=== PATIENT | male | born 1995 | race Two or more races ===

== ENCOUNTER 2021-07-07 23:47 | Emergency (ER) | payer OTHER, SELFPAY ==
--- NOTE | ~2021-07-07 | XR_ITS ---
EXAMINATION: XR CHEST CLINICAL INFORMATION: Chest pain. Shortness of breath. COMPARISON: 11/27/2019 TECHNIQUE: Frontal view of the chest was obtained. FINDINGS: The lungs are well expanded. There is no focal consolidation, edema, or effusion. No pneumothorax. The cardiomediastinal silhouette is within normal limits. No acute osseous abnormality. XR/XR chest 1V IMPRESSION: Clear lungs.
[2021-07-07 23:51] VITALS: BP 139/82; PULSE 79; RESP 16; TEMP 36.7; O2SAT 96; BMI 24.3
--- NOTE | 2021-07-08 00:29 | ED_ITS ---
HPI - General Adult General Chief complaint: General Medical Stated complaint: Chest discomfort Time Seen by Provider: 07/08/21 00:29 Source: patient Mode of arrival: ambulatory Limitations: no limitations History of Present Illness HPI narrative: Patient with history of COVID in 05/19 complaining of pain for last 2 days on the left side of the chest dry cough also has complaining that he had unprotected sex and want to be tested for STD very anxious on arrival no significant shortness of breath Related Data Previous Rx's Medication Instructions Recorded cephalexin 500 mg capsule 500 mg PO QID 10 Days #40 cap 07/08/21 doxycycline hyclate 100 mg tablet 100 mg PO BID #20 tab 07/08/21 Allergies Allergy/AdvReac Type Severity Reaction Status Date / Time acetaminophen [From TYLENOL] Allergy Severe ANAPHYLAXIS Verified 07/07/21 23:50 banana [BANANA] Allergy Intermediate ITCHING Verified 07/07/21 23:50 FRUIT Allergy Mild ITCHING Uncoded 05/15/20 19:38 VEGETABLES,FRESH Allergy Mild ITCHING Uncoded 05/15/20 19:38 Review of Systems Review of Systems: Yes all other systems are reviewed and are negative [facility] Social History Social History Advance Directives: No Physical Exam Vital Signs: Vital Signs: Last Vital Signs Temp 98.1 F 07/07/21 23:51 Pulse 79 07/07/21 23:51 Resp 16 07/07/21 23:51 BP 139/82 07/07/21 23:51 Pulse Ox 96 07/07/21 23:51 Body Mass Index 24.3 Appearance: Alert. Oriented X3. No acute distress. Eyes: No pallor or icterus ENT: Pharynx normal. Oral Mucosa moist Neck: Normal inspection. Neck supple. CVS: Normal heart rate and rhythm. Pulses normal. Respiratory: No respiratory distress. Equal air entry bilateral, no wheezing/rales/rhonchi slight redness around the left nipple area Abdomen: Soft and nontender. Bowel sounds are present, no mass palpable, no CVA tenderness Skin: Skin warm and dry. Normal skin color. Normal skin turgor. Extremities: No lower extremity edema. No calf tenderness Neuro: Oriented X 3. Medical Decision Making ECG Data Attestation: I personally reviewed and interpreted this ECG as follows: Interpretation: Numbness in its rhythm heart rate 78 beats per minute normal intervals normal axis no acute ST T wave changes impression normal EKG Discharge Plan Discharge Clinical Impression: Cellulitis Qualifiers: Site of cellulitis: trunk Site of cellulitis of trunk: chest wall Qualified Code(s): L03.313 - Cellulitis of chest wall Chest pain Qualifiers: Chest pain type: precordial pain Qualified Code(s): R07.2 - Precordial pain Patient Disposition: Home, Self-Care Instructions: Chest Pain (ED), Cellulitis (ED) Additional Instructions: Take antibiotic as advised for cellulitis Follow with PCP your chest pain is unlikely from the heart Report to the ER/PCP worsening of the redness of the left chest wall Prescriptions: New cephalexin 500 mg capsule 500 mg PO QID 10 Days Qty: 40 RF: 0 doxycycline hyclate 100 mg tablet 100 mg PO BID Qty: 20 RF: 0
--- NOTE | 2021-07-08 00:34 | ECG_ITS ---
Test Reason : CP Blood Pressure : / mmHG Vent. Rate : 078 BPM Atrial Rate : 078 BPM P-R Int : 144 ms QRS Dur : 104 ms QT Int : 358 ms P-R-T Axes : 055 000 048 degrees QTc Int : 408 ms Normal sinus rhythm Incomplete right bundle branch block Abnormal ECG When compared with ECG of 27-NOV-2019 16:21, No significant change was found Referred By: David Escobar Electronically Signed By:ALLEN OLIVAS MD
--- NOTE | 2021-07-08 01:09 | ED.GENADULT ---
HPI - General Adult General Chief complaint: General Medical Stated complaint: Chest discomfort Time Seen by Provider: 07/08/21 00:29 Source: patient Mode of arrival: ambulatory Limitations: no limitations Related Data Previous Rx's Medication Instructions Recorded cephalexin 500 mg capsule 500 mg PO QID 10 Days #40 cap 07/08/21 doxycycline hyclate 100 mg tablet 100 mg PO BID #20 tab 07/08/21 Allergies Allergy/AdvReac Type Severity Reaction Status Date / Time acetaminophen [From TYLENOL] Allergy Severe ANAPHYLAXIS Verified 07/07/21 23:50 banana [BANANA] Allergy Intermediate ITCHING Verified 07/07/21 23:50 FRUIT Allergy Mild ITCHING Uncoded 05/15/20 19:38 VEGETABLES,FRESH Allergy Mild ITCHING Uncoded 05/15/20 19:38 PMFSH Social History Social History Advance Directives: No Physical Exam Vital Signs: Vital Signs: Last Vital Signs Temp 98.1 F 07/07/21 23:51 Pulse 79 07/07/21 23:51 Resp 16 07/07/21 23:51 BP 139/82 07/07/21 23:51 Pulse Ox 96 07/07/21 23:51 Body Mass Index 24.3 Discharge Plan Discharge Clinical Impression: Cellulitis Qualifiers: Site of cellulitis: trunk Site of cellulitis of trunk: chest wall Qualified Code(s): L03.313 - Cellulitis of chest wall Chest pain Qualifiers: Chest pain type: precordial pain Qualified Code(s): R07.2 - Precordial pain Patient Disposition: Home, Self-Care Instructions: Chest Pain (ED), Cellulitis (ED) Additional Instructions: Take antibiotic as advised for cellulitis Follow with PCP your chest pain is unlikely from the heart Report to the ER/PCP worsening of the redness of the left chest wall Prescriptions: New cephalexin 500 mg capsule 500 mg PO QID 10 Days Qty: 40 RF: 0 doxycycline hyclate 100 mg tablet 100 mg PO BID Qty: 20 RF: 0
[2021-07-08 01:15] VITALS: BP 117/87; PULSE 75; RESP 16; O2SAT 96
[2021-07-08] MEDS: cephALEXin 500 MG CAPSULE PO (01:16)
[2021-07-08 01:30] LABS: Appearance Urine CLEAR; Color Urine YELLOW; Glucose Urine UA NEG (NEG); Leukocyte Esterase Urine NEG (NEG); Nitrite Urine NEG (NEG); Specific Gravity - Urine >= 1.030 (1.005-1.025); Urine Blood NEG (NEG); Urine Ketones NEG (NEG); Urine Protein NEG (NEG-TRACE)
[2021-07-08 01:31] LABS: UACC Culture Trigger NO
[2021-07-08 03:03] LABS: CT PCR NOT DETECTED (Not Detect.); NG PCR NOT DETECTED (Not Detect.)
== END 2021-07-08 01:23 | disposition home or self-care (01) ==
PROVIDERS: Emergency Provider Internal Medicine; PCP Internal Medicine
DX: L03.313 Cellulitis of chest wall (principal); R07.2 Precordial pain
CPT/HCPCS: 71045; 81003; 87491; 87591; 93005; 99283; 99284

== ENCOUNTER 2022-02-16 18:47 | Emergency (ER) | payer OTHER, SELFPAY ==
--- NOTE | 2022-02-16 | ECG_ITS ---
Test Reason : PALPITATIONS Blood Pressure : / mmHG Vent. Rate : 063 BPM Atrial Rate : 063 BPM P-R Int : 142 ms QRS Dur : 120 ms QT Int : 372 ms P-R-T Axes : 035 000 048 degrees QTc Int : 380 ms Normal sinus rhythm Right bundle branch block Abnormal ECG When compared with ECG of 08-JUL-2021 00:51, Right bundle branch block is now Present Referred By: Generic ED Physician Electronically Signed By:WILL ASENCIO MD
--- NOTE | ~2022-02-16 | CT_ITS ---
EXAMINATION: CT ANGIOGRAM OF THE CHEST WITH AND WITHOUT CONTRAST (CT PULMONARY ANGIOGRAM FOR PE) CLINICAL INFORMATION: Reason for Exam L posterior chest pain, new RBBB, COVID 14 days pr COMPARISON: Chest radiograph 07/08/2021. TECHNIQUE: Prior to contrast administration, noncontrast localization images were obtained. Subsequently, multidetector volumetric imaging was performed from the thoracic inlet to below the diaphragms following the administration of 65 mL Omnipaque 350 intravenous contrast. No contrast reaction reported Sagittal, coronal, and MIP oblique sagittal reformatted images were obtained on the CT workstation, uploaded to PACS, and reviewed. This CT examination was performed using dose optimization techniques as appropriate, variously including the following: *Automated exposure control *Adjustment of mA and/or kV according to patient size (this includes techniques or standardized protocols for targeted exams where dose is matched to indication/reason for exam; i.e. extremities or head) *Use of iterative reconstruction technique Total exam dose-length product 281 mGy-cm FINDINGS: QUALITY OF STUDY/CONTRAST BOLUS: Satisfactory. PULMONARY ARTERIES: No intraluminal filling defects are identified to suggest the presence of pulmonary emboli. The main and central pulmonary arteries are normal in caliber. Mediastinum: Normal appearance of the thyroid. No lymphadenopathy. Normal caliber and contour of the thoracic aorta. Normal heart size. No pericardial thickening or fluid collections. Lungs and pleura: A thin-walled 1.2 cm simple cyst is present in the left lung base and is of uncertain clinical significance. No ulnar consolidation. No pulmonary groundglass opacities. No pneumothoraces or pleural effusions. No peribronchial wall thickening or endobronchial lesions identified. CHEST WALL: No axillary lymphadenopathy. Incidentally visualized abdominal structures: Normal appearance of the adrenal glands. Osseous structures: No suspicious skeletal lesions identified. CT/CT angio chest PE protocol IMPRESSION: *CT pulmonary angiogram negative for pulmonary emboli. *No acute cardiopulmonary abnormalities. No evidence of pneumonia or pulmonary edema. VTE: negative
[2022-02-16 20:12] VITALS: BP 135/90; PULSE 65; RESP 18; O2SAT 97; BMI 25.1
[2022-02-16 20:29] LABS: MANUAL DIFF FLAG NO
[2022-02-16 20:39] LABS: Basophils Percent Auto 0.4 % (0-2); Eosinophils Absolute Auto 0.2 X10*3/uL (0.0-0.4); Eosinophils Percent Auto 2.3 % (0-4); Hematocrit 40.4 % (42.0-52.0); Hemoglobin 12.7 g/dl (14.0-18.0); Imm Gran Abs Auto 0.07 X10*3/uL (0.00-0.03); Imm Gran Pct Auto 0.7 % (0.0-0.4); Lymphocytes Absolute Auto 2.8 X10*3/uL (1.2-4.9); Lymphocytes Percent Auto 29.1 % (20-40); Mean Corpuscular HGB Conc 31.4 g/dl (31.0-36.0); Mean Corpuscular Hemoglobin 19.8 pg (27.0-33.0); Mean Platelet Volume 9.3 fL (9.4-12.4); Monocytes Absolute Auto 0.8 X10*3/uL (0.1-1.2); Monocytes Percent Auto 8.3 % (2-11); Neutrophils Absolute Auto 5.6 x10*3/uL (2.0-8.3); Neutrophils Percent Auto 59.2 % (45-73); Platelet Count 367 X10*3/uL (160-400); Red Blood Count 6.43 X10*6/uL (4.60-5.80); Red Cell Distribution Width 17.2 % (11.0-16.0); White Blood Count 9.5 X10*3/uL (4.8-10.8)
[2022-02-16 20:50] LABS: Mean Corpuscular Volume 62.8 fL (80.0-98.0); Troponin-I High Sensitivity < 3.5 ng/L (<3.5-35.0)
[2022-02-16 20:58] LABS: Alanine Aminotransferase 39 U/L (0-40); Albumin Level 4.7 g/dL (3.5-5.0); Alkaline Phosphatase 83 U/L (39-117); Anion Gap 12 (12-20); Aspartate Amino Transferase 19 U/L (5-37); Bilirubin Total 0.4 mg/dL (0.0-1.0); Calcium 9.4 mg/dL (8.4-10.2); Carbon Dioxide 25 mmol/L (22-29); Chloride 105 mmol/L (96-108); Creatinine Clr Calc Pharmacy 115.4; Estimated Glomerular Filt Rate > 60; Glucose Random 101 mg/dL (60-115); Potassium 4.2 mmol/L (3.3-5.1); Sodium 138 mmol/L (135-145); Total Protein 7.6 g/dL (6.5-8.0)
[2022-02-16 21:30] LABS: Blood Urea Nitrogen 19 mg/dL (9-16)
[2022-02-16 22:43] VITALS: BP 127/88; PULSE 63; RESP 20; TEMP 36.9; O2SAT 98
[2022-02-17 00:10] VITALS: BP 134/85; PULSE 64; RESP 13; TEMP 36.7; O2SAT 98
--- NOTE | 2022-02-17 00:14 | ED.CHESTPAIN ---
HPI - Chest Pain General Chief Complaint: Arrhythmia/Palpitations Stated Complaint: upper back pain/chest pain Time Seen by Provider: 02/16/22 23:31 Source: patient Mode of arrival: ambulatory Limitations: no limitations History of Present Illness HPI narrative: 26-year-old male emergency department for evaluation of left scapular/posterior chest pain, sternal chest pain and pelvic mass. Patient states that approximately 15 days prior he developed COVID-19. States that initially his symptoms included shortness of breath, cough, sore throat and chills. He did receive 3 Pfizer vaccinations. Given his history of asthma, he received Bebtelovimab COVID-19 monoclonal antibody. He states that when he received the antibody he developed immediate pain in his left upper back, midback and sternal area. He states the pain initially was intermittent but is now become more constant. He describes the pain as a pressure-like sensation which is 8/10 at its worst. The pain does not change with breathing or with movement. he states that his shortness of breath has improved but he still does feel short of breath and he attributes it to his asthma. He denied dyspnea on exertion. He states he has been having intermittent palpitations as well. States that he has noticed some slight swelling in his left ankle otherwise has no significant swelling in his lower extremities or pain in his lower extremities. The patient did speak to his PCP and referred to the emergency department for evaluation. MD complaint: chest pain Pertinent past history: other ( COVID infection 15 days prior) Onset (ago): day(s) (13) Timing of current episode: episodic Prior episodes: No Onset: other ( after receiving IV COVID-19 monoclonal antibodies (Bebtelovimab)) Pain location: substernal, left chest ( posterior) and other ( upper midback) Pain radiation: none Severity: severe Pain scale (0-10): 8 Quality: other ( pressure) Relieving factors: nothing Exacerbating factors: nothing Context: recent illness ( COVID-19 infection 15 days prior) Associated symptoms: palpitations Treatment prior to arrival: none ( NSAIDs without relief) Related Data Previous Rx's Medication Instructions Recorded cephalexin 500 mg capsule 500 mg PO QID 10 days #40 caps 07/08/21 doxycycline hyclate 100 mg tablet 100 mg PO BID #20 tabs 07/08/21 ketorolac 10 mg tablet 10 mg PO TID PRN pain 5 days #15 02/17/22 tabs Allergies Allergy/AdvReac Type Severity Reaction Status Date / Time acetaminophen [From TYLENOL] Allergy Severe ANAPHYLAXIS Verified 07/07/21 23:50 banana [BANANA] Allergy Intermediate ITCHING Verified 07/07/21 23:50 FRUIT Allergy Mild ITCHING Uncoded 05/15/20 19:38 VEGETABLES,FRESH Allergy Mild ITCHING Uncoded 05/15/20 19:38 Review of Systems Review of Systems: Yes all other systems are reviewed and are negative [facility] Past Medical History [facility] Narrative: past medical history: Asthma, GERD. Past surgical history: None. Social history denies tobacco use. He states that he does drink heavily on the weekends and occasionally binge drinks. Social History Social History Advance Directives: No Advance Directives Information Provided: No Physical Exam Vital Signs: Vital Signs: Last Vital Signs Temp 98.0 F 02/17/22 00:10 Pulse 55 02/17/22 02:28 Resp 14 02/17/22 02:28 BP 122/74 02/17/22 02:28 Pulse Ox 99 02/17/22 02:28 O2 Del Method 02/17/22 02:28 BMI result Body Mass Index 25.1 Const: General: cooperative and no acute distress Orientation/consciousness: oriented to person and oriented to place Limitations: no limitations HEENT: Head: Yes normal to inspection, Yes normocephalic and Yes atraumatic Ears: external ears normal General nose exam: Normal external nose present Face and sinus: Yes normal facial exam Mouth: Normal oral and palatal mucosa present Throat: Yes posterior oropharynx normal Eyes: General: appearance normal, both eyes and all related structures Pupils: Equal, round and reactive pupils present Neck: Neck: Yes normal visual inspection, Yes no lymphadenopathy, Yes trachea midline and Yes supple Chest: Chest palpation & inspection: normal inspection of the chest and normal palpation of entire chest wall Resp: Effort & Inspection: normal respiratory effort and able to speak in complete sentences Auscultation: clear to auscultation bilaterally Cardio: Rate: regular rate Rhythm: regular rhythm Heart sounds: S1 normal heart sound present, S2 normal heart sound present and no murmurs GI: Inspection: Yes normal to inspection Palpation (GI): Soft to palpation, nontender and no guarding Auscultation: normal bowel sounds : General: Yes no CVA tenderness Back/Spine/Pelvis: Back: no CVA tenderness Skin: General skin exam: no rashes or lesions noted Neuro: General: oriented to person and oriented to place Cranial nerves: Yes CN's II-XII intact bilaterally and Yes Equal, round and reactive pupils present Cognition (Neuro): normal cognition Motor exam (neuro): 5/5 motor strength present throughout Extrem: General: Yes normal to inspection Psych: Appearance: grossly normal Speech and movement: Normal speech and movement present Affect: normal affect Attitude: cooperative Thought process: Normal thought process present Thought content: Normal thought content present Course Course Course Narrative: 26-year-old male who presents emergency department for evaluation of left posterior scapular, upper thoracic and anterior sternum pain which is been intermittent for 13 days that started after he received the monoclonal COVID-19 antibody Bebtelovimab. The pain is been intermittent but is gotten worse. He has also had associated palpitations. He states that he does have shortness of breath and a slight cough that may be residual from his COVID-19 infection or related to his asthma. Patient's vital signs were unremarkable. Physical examination did not reveal any tenderness palpation of his anterior posterior chest or back. I did order a CBC, CMP, troponin, EKG. 0024: laboratory evaluation : CBC was normal. CMP was normal. High sensitive troponin I was below detectable limits. EKG :normal sinus rhythm with a rate of 63 with a right bundle-branch block compared to EKG done 07/08/2021 the patient had incomplete right bundle-branch block so this EKG is changed. Given this change in the patient's EKG I did order a CT pulmonary angiogram PE protocol to further evaluate the patient's symptoms. Patient was ordered to get Toradol 15 mg IV and normal saline 1 L IV. 0258: CT pulmonary angiogram PE protocol did not reveal any clear cause for the patient's pain. I did discuss this patient. The patient most likely has musculoskeletal pain. The patient did get relief with the IV Toradol. The patient was given prescription for Toradol 10 mg 3 times a day for 5 days. He was given printed and verbal instructions and discharged home. MDM - Chest Pain Lab Data Result diagrams: 02/16/22 20:25 02/16/22 20:25 Labs: Lab Results 02/16/22 02/16/22 02/16/22 Range/Units 20:25 20:25 20:25 WBC 9.5 (4.8-10.8) X10*3/uL RBC 6.43 H (4.60-5.80) X10*6/uL Hgb 12.7 L (14.0-18.0) g/dl Hct 40.4 L (42.0-52.0) % MCV 62.8 L (80.0-98.0) fL MCH 19.8 L (27.0-33.0) pg MCHC 31.4 (31.0-36.0) g/dl RDW 17.2 H (11.0-16.0) % Plt Count 367 (160-400) X10*3/uL MPV 9.3 L (9.4-12.4) fL Immature Gran % (Auto) 0.7 H (0.0-0.4) % Neut % (Auto) 59.2 (45-73) % Lymph % (Auto) 29.1 (20-40) % Bullock % (Auto) 8.3 (2-11) % Eos % (Auto) 2.3 (0-4) % Baso % (Auto) 0.4 (0-2) % Lymph # (Auto) 2.8 (1.2-4.9) X10*3/uL Bullock # (Auto) 0.8 (0.1-1.2) X10*3/uL Eos # (Auto) 0.2 (0.0-0.4) X10*3/uL Baso # (Auto) 0.0 (0.0-0.2) X10*3/uL Abs Immat Gran (auto) 0.07 H (0.00-0.03) X10*3/uL Absolute Neuts (auto) 5.6 (2.0-8.3) x10*3/uL Absolute Nucleated RBC 0.000 (0.0-0.012) X10*3/uL Nucleated RBC % (auto) 0.0 (0.0-0.2) /100WBC Sodium 138 (135-145) mmol/L Potassium 4.2 (3.3-5.1) mmol/L Chloride 105 (96-108) mmol/L Carbon Dioxide 25 (22-29) mmol/L Anion Gap 12 (12-20) BUN 19 H (9-16) mg/dL Creatinine 1.01 (0.5-1.4) mg/dL Estim Creat Clear Calc 115.4 Estimated GFR > 60 Random Glucose 101 (60-115) mg/dL Calcium 9.4 (8.4-10.2) mg/dL Total Bilirubin 0.4 (0.0-1.0) mg/dL AST 19 (5-37) U/L ALT 39 (0-40) U/L Alkaline Phosphatase 83 (39-117) U/L Troponin I High Sens < 3.5 (<3.5-35.0) ng/L Total Protein 7.6 (6.5-8.0) g/dL Albumin 4.7 (3.5-5.0) g/dL Discharge Plan Discharge Clinical Impression: Chest pain, Palpitation, Back pain Patient Disposition: Home, Self-Care Instructions: Chest Pain (ED) Prescriptions: New ketorolac 10 mg tablet 10 mg PO TID PRN (Reason: pain) 5 Days Qty: 15 0RF No Action cephalexin 500 mg capsule 500 mg PO QID 10 Days Qty: 40 0RF doxycycline hyclate 100 mg tablet 100 mg PO BID Qty: 20 0RF
[2022-02-17] MEDS: Ketorolac Tromethamine 15 MG/ML VIAL IVPUSH (00:40)
[2022-02-17] MEDS: iohexoL 350 MG/ML 100 ML INFUS..BTL 65 ML IV (01:58)
[2022-02-17 02:28] VITALS: BP 122/74; PULSE 55; RESP 14; O2SAT 99
== END 2022-02-17 03:36 | disposition home or self-care (01) ==
PROVIDERS: Emergency Provider Emergency Medicine Emergency Medical Services; PCP Internal Medicine
DX: I49.9 Cardiac arrhythmia, unspecified (principal); R00.2 Palpitations; M54.6 Pain in thoracic spine; R07.89 Other chest pain; M54.50 Low back pain, unspecified; Z79.899 Other long term (current) drug therapy
CPT/HCPCS: 36415; 71275; 80053; 84484; 85025; 93005; 96361; 96374; 99284; J1885; Q9967

== ENCOUNTER 2022-08-10 14:00 | Outpatient (REF) | payer OTHER, SELFPAY ==
[2022-08-10 17:29] LABS: Influenza A PCR NEGATIVE (Negative); Influenza B PCR NEGATIVE (Negative); Resp Syncy Virus RNA Qual PCR NEGATIVE (Negative); SARS COV2 PCR INHOUSE NEGATIVE (Negative)
== END 2022-08-10 14:01 | disposition home or self-care (01) ==
LOC: HO.LAB 14:00
PROVIDERS: Visit Provider Physician Assistant
DX: Z20.822 Contact with and (suspected) exposure to COVID-19 (principal); B34.9 Viral infection, unspecified
CPT/HCPCS: 0241U

== ENCOUNTER 2023-05-10 13:06 | Outpatient (AMB) | payer OTHER, SELFPAY ==
--- NOTE | 2023-05-10 14:23 | AM.OFFWIN_ITS ---
Intake Vital Signs 05/10/23 14:47 Height 5 ft 10 in Weight 165 lb BMI 23.7 BP 130/80 Blood Pressure Location Rt brachial Position Sitting Pulse 72 Pulse Source Pulse Oximeter Temp 98.6 F Temp Source Temporal Artery Scan Pulse Oximetry (%) 98 Oxygen Delivery Method Room Air Intake Visit Reasons: EST/left foot stepped on chaz nail/[phone] Intake Note: Patient here because yesterday he stepped on a chaz nail on the left foot. Pain in groin area under left testicle and has radiated down the leg which has been present for about 1 week. pt thinks last tdap was given to him last year at an urgent care after a dog bite Patient Tobacco Use Status: Former Tobacco user Allergies acetaminophen [From TYLENOL] Allergy (Severe, Verified 05/10/23 15:19) ANAPHYLAXIS banana [BANANA] Allergy (Intermediate, Verified 05/10/23 15:19) ITCHING FRUIT Allergy (Mild, Uncoded 05/10/23 15:19) ITCHING VEGETABLES,FRESH Allergy (Mild, Uncoded 05/10/23 15:19) ITCHING Medication List - Last Reconciled 05/10/23 by Mic Lepe MD famotidine 20 mg PO BID fluticasone propionate 220 mcg/actuation (Flovent HFA) 1 puff inhalation BID Do you need a note to return to daycare/school/sports/work: Yes HPI EST/left foot stepped on chaz nail/[phone] HPI Details 27-year-old male presents to the office for a sick visit. Patient stepped on a chaz nail. The left heel was punctured by the nail. Patient is up-to-date on his tetanus shot [facility] Social History Patient Tobacco Use Status: Former Tobacco user Physical Exam Vital Signs: Last Vital Signs Temp 98.6 F 05/10/23 14:47 Pulse 72 05/10/23 14:47 BP 130/80 05/10/23 14:47 Pulse Ox 98 05/10/23 14:47 Oxygen Delivery Method Room Air 05/10/23 14:47 BMI result Body Mass Index 23.7 Extrem Other: Left foot: Calcaneal area: Small puncture wound. No surrounding erythema or tenderness. Assessment & Plan Assessment & Plan (1) Puncture wound of left foot: Code(s): S91.332A - Puncture wound without foreign body, left foot, initial encounter Plan: Patient at a tetanus shot in 2017. Wound does not look infected and no antibiotics are needed. Coding Level of Care Code Est Pt Level 3 (22332) Diagnoses Puncture wound of left foot S91.332A
[2023-05-10 14:47] VITALS: BP 130/80; PULSE 72; TEMP 37; O2SAT 98; BMI 23.7
== END 2023-05-10 15:49 | disposition home or self-care (01) ==
PROVIDERS: PCP Internal Medicine; Visit Provider Internal Medicine
DX: S91.332A Puncture wound without foreign body, left foot, initial encounter (principal)
CPT/HCPCS: 99213

== ENCOUNTER 2023-05-16 15:52 | Outpatient (AMB) | payer OTHER, SELFPAY ==
[2023-05-16 16:10] VITALS: BP 122/78; PULSE 83; RESP 12; TEMP 36.6; O2SAT 98; BMI 23.4
--- NOTE | 2023-05-16 16:10 | MHC.OFFWIV ---
Intake Vital Signs 05/16/23 16:10 Height 5 ft 10 in Weight 163 lb 4 oz BMI 23.4 BP 122/78 Blood Pressure Location Rt brachial Position Sitting Respiration 12 Pulse 83 Pulse Source Pulse Oximeter Temp 97.8 F Temp Source Temporal Artery Scan Pulse Oximetry (%) 98 Intake Visit Reasons: EP ?Strep (masked) Intake Note: pt is here for c/o possible strep Patient Tobacco Use Status: Former Tobacco user Allergies acetaminophen [From TYLENOL] Allergy (Severe, Verified 05/16/23 16:40) ANAPHYLAXIS banana [BANANA] Allergy (Intermediate, Verified 05/16/23 16:40) ITCHING FRUIT Allergy (Mild, Uncoded 05/16/23 16:40) ITCHING VEGETABLES,FRESH Allergy (Mild, Uncoded 05/16/23 16:40) ITCHING Medication List - Last Reconciled 05/16/23 by Mic Lepe MD famotidine 20 mg PO BID fluticasone propionate 220 mcg/actuation (Flovent HFA) 1 puff inhalation BID hydroxyzine HCl 10 mg PO TID omeprazole 20 mg PO DAILY Do you need a note to return to daycare/school/sports/work: Yes HPI EP ?Strep (masked) HPI Details Patient presents for a sick visit. Reporting symptoms of sinus congestion, sore throat and difficulty swallowing. Low-grade fever. No family member is sick. No recent travel. Patient reports symptoms of malaise and fatigue. [facility] Social History Patient Tobacco Use Status: Former Tobacco user Physical Exam Vital Signs: Last Vital Signs Temp 97.8 F 05/16/23 16:10 Pulse 83 05/16/23 16:10 Resp 12 05/16/23 16:10 BP 122/78 05/16/23 16:10 Pulse Ox 98 05/16/23 16:10 BMI result Body Mass Index 23.4 Const General: cooperative and healthy appearing Nutritional Appearance: well nourished Orientation/consciousness: patient oriented x3 Limitations: no limitations HEENT Head: Yes normal to inspection Eyes General: appearance normal, both eyes and all related structures Neck Neck: Yes normal visual inspection Chest Chest palpation & inspection: normal palpation of entire chest wall Resp Effort & Inspection: normal respiratory effort Neuro General: patient oriented x3 Results AMB Rapid Strep AMB Rapid Strep Negative Last Edit by Cruzito Cedillo CMA on 05/16/23 16:25 Results Reviewed Results Reviewed: Laboratory Last Values Strep Scn [facility] Negative 05/16/23 16:24 Assessment & Plan Assessment & Plan (1) Upper respiratory tract infection: Code(s): J06.9 - Acute upper respiratory infection, unspecified Qualifiers: Pharyngitis/tonsillitis etiology: unspecified etiology URI type: acute pharyngitis Qualified Code(s): J02.9 - Acute pharyngitis, unspecified Plan: Antibiotics ordered. Increase fluid intake. Tylenol for aches and pains. If symptoms worsen, follow-up here for a recheck. Orders: Orders AMB Rapid Strep Screen Today Z13.9 - Encounter for screening, unspecified Coding Level of Care Code Est Pt Level 3 (18685) Diagnoses Acute pharyngitis, unspecified etiology J02.9 Pharyngitis/tonsillitis etiology: unspecified etiology URI type: acute pharyngitis
== END 2023-05-16 16:43 | disposition home or self-care (01) ==
PROVIDERS: PCP Internal Medicine; Visit Provider Internal Medicine
DX: J02.9 Acute pharyngitis, unspecified (principal)
CPT/HCPCS: 87880; 99213

== ENCOUNTER 2023-09-28 13:11 | Outpatient (AMB) | payer OTHER, SELFPAY ==
--- NOTE | 2023-09-28 13:17 | MHC.OFFWIV ---
Intake Vital Signs 09/28/23 13:18 Height 5 ft 10 in Weight 168 lb BMI 24.1 BP 130/70 Blood Pressure Location Lt brachial Position Sitting Pulse 60 Pulse Source Pulse Oximeter Temp 97.6 F Temp Source Temporal Artery Scan Pulse Oximetry (%) 97 Oxygen Delivery Method Room Air Intake Visit Reasons: EP Sinus pressure/Neck pain (masked) Intake Note: pt is here today for sinus pressure started tuesday Patient Tobacco Use Status: Former Tobacco user Allergies acetaminophen [From TYLENOL] Allergy (Severe, Verified 09/28/23 13:25) ANAPHYLAXIS banana [BANANA] Allergy (Intermediate, Verified 09/28/23 13:25) ITCHING FRUIT Allergy (Mild, Uncoded 05/16/23 16:40) ITCHING VEGETABLES,FRESH Allergy (Mild, Uncoded 05/16/23 16:40) ITCHING Do you need a note to return to daycare/school/sports/work: Yes HPI HPI Comments History of Present Illness Details Patient is a 28yo M who presents to office with congestion He has been sick since last + sinus congestion and states mucus seems stuck He has tried an OTC syrup with some relief Minimal cough/wheeze. baseline asthma No SOB or CP Denies fever, chills, dizziness + headache yesterday which resolved He denies ear pain Minimal ST No pain scale given he also mentions months of L upper back pain he think that he pulled it a while ago but unsure of exact injury Worse with movements and trying to find comfortable position to sleep in He said he has been unable to see an MD for it so he wanted to bring it up today, unrelated to his cold symptoms [facility] Medical History (Updated 09/28/23 @ 13:39 by Lore Marshall PA-C) Upper respiratory infection due to [place] influenza virus Social History Patient Tobacco Use Status: Former Tobacco user Review of Systems Const Denies chills, Denies fatigue, Denies fever(s) and Denies weakness Eyes Denies blurry vision ENT Denies otalgia, Reports facial pain, Reports nasal congestion, Reports nasal discharge, Denies sinus pain, Denies sinus pressure, Reports sore throat and Denies throat swelling Card Denies chest pain and Denies dyspnea Resp Denies change in phlegm color, Denies chest congestion, Reports cough, Denies dyspnea and Reports wheezing GI Denies abdominal pain Musc Reports back pain (L upper back) and Denies tingling Neuro Denies tingling and Denies weakness Endo Denies fatigue Aller/Immun Denies throat swelling and Reports wheezing Physical Exam Vital Signs: Last Vital Signs Temp 97.6 F 09/28/23 13:18 Pulse 60 09/28/23 13:18 BP 130/70 09/28/23 13:18 Pulse Ox 97 09/28/23 13:18 Oxygen Delivery Method Room Air 09/28/23 13:18 BMI result Body Mass Index 24.1 General: Non-toxic, NAD. Speaking full sentences. Skin: Warm dry throughout Eye: EOMI, pERRL HENT: Airway patent. Uvula midline. No pharyngeal erythema or edema. 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 Bilateral canals clear. TM non-erythematous, non-bulging. No TM perforation or hemotympanum noted. No rhinorrhea. Minimal maxillary sinus pressure. No frontal tenderness. Respiratory: CTA bilaterally. No wheezes, rales or rhonchi Cardiac: RRR. No murmur Neck: No midline c spine tenderness. + L trapezius tenderness to palpation. MSK: Full ROM extremities. Neurology: A/O. No aphasia or facial droop. Gait without abnormality Psych: Good mood and affect Assessment & Plan Assessment & Plan (1) Trapezius muscle spasm: Code(s): M62.838 - Other muscle spasm Plan: Warm compress Robaxin as prescribed prn; can cause lethargy. No alcohol, working or driving under influence. (2) Upper respiratory tract infection: Code(s): J06.9 - Acute upper respiratory infection, unspecified Qualifiers: URI type: acute pharyngitis Pharyngitis/tonsillitis etiology: unspecified etiology Qualified Code(s): J02.9 - Acute pharyngitis, unspecified Plan: Patient seen and evaluated. Lungs CTA Symptoms x 7 days No sign of bacterial infection Recommended nasal steroid, head elevation F/U with PCP Concern in 10-14 days today with worsening symptoms that it has become bacterial. Patient gave verbal understanding and had no additional questions or concerns at time of discharge All questions answered Medications: New methocarbamol 500 mg PO BID PRN 14 tabs 0RF muscle spasm ipratropium bromide administer into each nostril 2 sprays intranasal BID-TID 7 days PRN 30 mL 0RF allergy symptoms Coding Level of Care Code Est Pt Level 3 (74919) Diagnoses Trapezius muscle spasm M62.838 Acute pharyngitis, unspecified etiology J02.9 URI type: acute pharyngitis Pharyngitis/tonsillitis etiology: unspecified etiology
[2023-09-28 13:18] VITALS: BP 130/70; PULSE 60; TEMP 36.4; O2SAT 97; BMI 24.1
== END 2023-09-28 13:50 | disposition home or self-care (01) ==
PROVIDERS: PCP Internal Medicine; Visit Provider Physician Assistant
DX: M62.838 Other muscle spasm (principal); J02.9 Acute pharyngitis, unspecified
CPT/HCPCS: 99213

== ENCOUNTER 2023-11-21 13:19 | Outpatient (AMB) | payer OTHER, SELFPAY ==
--- NOTE | 2023-11-21 14:10 | AM.OFFWIN_ITS ---
Intake Vital Signs 11/21/23 14:13 Height 5 ft 10 in Weight 161 lb 8 oz BMI 23.2 BP 118/74 Blood Pressure Location Rt brachial Position Sitting Pulse 73 Pulse Source Pulse Oximeter Temp 98.1 F Temp Source Oral Pulse Oximetry (%) 100 Oxygen Delivery Method Room Air Intake Visit Reasons: EP Sore throat [phone] Intake Note: Pt presents to the office today for a sore throat. Pt states this has been going on for a few days and denies any other symptoms. Patient Tobacco Use Status: Former Tobacco user Allergies acetaminophen [From TYLENOL] Allergy (Severe, Verified 11/21/23 14:15) ANAPHYLAXIS banana [BANANA] Allergy (Intermediate, Verified 11/21/23 14:15) ITCHING tree nuts Allergy (Intermediate, Uncoded 11/21/23 14:15) unknown FRUIT Allergy (Mild, Uncoded 11/21/23 14:15) ITCHING VEGETABLES,FRESH Allergy (Mild, Uncoded 11/21/23 14:15) ITCHING HPI EP Sore throat [phone] HPI Details Patient presents for a sick visit. Reporting symptoms of sinus congestion, sore throat and difficulty swallowing. Low-grade fever. No family member is sick. No recent travel. Patient reports symptoms of malaise and fatigue. [facility] Medical History Upper respiratory infection due to [place] influenza virus Social History Patient Tobacco Use Status: Former Tobacco user Physical Exam Vital Signs: Last Vital Signs Temp 98.1 F 11/21/23 14:13 Pulse 73 11/21/23 14:13 BP 118/74 11/21/23 14:13 Pulse Ox 100 11/21/23 14:13 Oxygen Delivery Method Room Air 11/21/23 14:13 BMI result Body Mass Index 23.2 Const General: cooperative and healthy appearing Nutritional Appearance: well nourished Orientation/consciousness: patient oriented x3 Limitations: no limitations HEENT Head: Yes normal to inspection Eyes General: appearance normal, both eyes and all related structures Neck Neck: Yes normal visual inspection Chest Chest palpation & inspection: normal palpation of entire chest wall Resp Effort & Inspection: normal respiratory effort Neuro General: patient oriented x3 Results AMB Rapid Strep AMB Rapid Strep Negative Last Edit by Lore Mike MA on 11/21/23 14:29 Results Reviewed Results Reviewed: Laboratory Last Values Strep Scn Rapid Clinic Negative 11/21/23 14:27 Assessment & Plan Assessment & Plan (1) Upper respiratory tract infection: Code(s): J06.9 - Acute upper respiratory infection, unspecified Qualifiers: URI type: acute pharyngitis Pharyngitis/tonsillitis etiology: unspecified etiology Qualified Code(s): J02.9 - Acute pharyngitis, unspecified Plan: Antibiotics ordered. Increase fluid intake. Tylenol for aches and pains. If symptoms worsen, follow-up here for a recheck.. Orders: Orders AMB Rapid Strep Screen Today Z13.9 - Encounter for screening, unspecified Medications: New azithromycin take 500 mg today (day 1), then 250 mg for 4 days (days 2-5) PO 6 tabs 0RF Coding Level of Care Code Est Pt Level 3 (29704) Diagnoses Acute pharyngitis, unspecified etiology J02.9 URI type: acute pharyngitis Pharyngitis/tonsillitis etiology: unspecified etiology
[2023-11-21 14:13] VITALS: BP 118/74; PULSE 73; TEMP 36.7; O2SAT 100; BMI 23.2
== END 2023-11-21 15:27 | disposition home or self-care (01) ==
PROVIDERS: PCP Internal Medicine; Visit Provider Internal Medicine
DX: J02.9 Acute pharyngitis, unspecified (principal); Z13.9 Encounter for screening, unspecified
CPT/HCPCS: 87880; 99213

== ENCOUNTER 2023-12-21 15:22 | Outpatient (AMB) | payer OTHER, SELFPAY ==
[2023-12-21 15:26] VITALS: BP 120/72; PULSE 73; TEMP 36.6; O2SAT 98; BMI 24.5
--- NOTE | 2023-12-21 15:26 | MHC.OFFWIV ---
Intake Vital Signs 12/21/23 15:26 Height 5 ft 10 in Weight 171 lb BMI 24.5 BP 120/72 Blood Pressure Location Lt brachial Position Sitting Pulse 73 Pulse Source Pulse Oximeter Temp 97.8 F Temp Source Temporal Artery Scan Pulse Oximetry (%) 98 Oxygen Delivery Method Room Air Intake Visit Reasons: EP mid-lower back pain Intake Note: pt is here for mid lower back pain due to picking up a tall ladder and after that it has been causing pain Patient Tobacco Use Status: Former Tobacco user Allergies acetaminophen [From TYLENOL] Allergy (Severe, Verified 12/21/23 15:51) ANAPHYLAXIS banana [BANANA] Allergy (Intermediate, Verified 12/21/23 15:51) ITCHING tree nuts Allergy (Intermediate, Uncoded 12/21/23 15:51) unknown FRUIT Allergy (Mild, Uncoded 12/21/23 15:51) ITCHING VEGETABLES,FRESH Allergy (Mild, Uncoded 12/21/23 15:51) ITCHING Medication List - Last Reconciled 12/21/23 by Mic Lepe MD albuterol sulfate 90 mcg/actuation inhalation famotidine 20 mg PO BID fluticasone propionate 220 mcg/actuation (Flovent HFA) 1 puff inhalation BID omeprazole 20 mg PO DAILY Do you need a note to return to daycare/school/sports/work: Yes HPI EP mid-lower back pain HPI Details 28-year-old male presents to the office for a sick visit. 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 He was moving a heavy ladder a week ago. Subsequently he is experiencing lower back pain. Pain is in the middle of his lower back radiating into his buttocks. Pain is not worsened on bending forwards or sideways. No urinary incontinence. No fevers or chills. [facility] Medical History Upper respiratory infection due to [place] influenza virus Social History Patient Tobacco Use Status: Former Tobacco user Physical Exam Vital Signs: Last Vital Signs Temp 97.8 F 12/21/23 15:26 Pulse 73 12/21/23 15:26 BP 120/72 12/21/23 15:26 Pulse Ox 98 12/21/23 15:26 Oxygen Delivery Method Room Air 12/21/23 15:26 BMI result Body Mass Index 24.5 Const General: cooperative and healthy appearing Nutritional Appearance: well nourished Orientation/consciousness: patient oriented x3 Limitations: no limitations HEENT Head: Yes normal to inspection Eyes General: appearance normal, both eyes and all related structures Neck Neck: Yes normal visual inspection Chest Chest palpation & inspection: normal palpation of entire chest wall Resp Effort & Inspection: normal respiratory effort Back/Spine/Pelvis Other: No spinal tenderness. No paraspinal spasm. Neuro General: patient oriented x3 Assessment & Plan Assessment & Plan (1) Lower thoracic back pain: Code(s): M54.6 - Pain in thoracic spine Plan: Meloxicam and cyclobenzaprine called in. Physical therapy ordered. Patient was encouraged to use a warm compress. If symptoms not better to follow-up here. Stretching exercises suggested. Coding Level of Care Code Est Pt Level 3 (94579) Diagnoses Lower thoracic back pain M54.6
== END 2023-12-21 18:52 | disposition home or self-care (01) ==
PROVIDERS: PCP Internal Medicine; Visit Provider Internal Medicine
DX: M54.6 Pain in thoracic spine (principal)
CPT/HCPCS: 99213

== ENCOUNTER 2024-05-14 16:04 | Outpatient (AMB) | payer OTHER, SELFPAY ==
[2024-05-14 16:05] VITALS: BP 118/76; PULSE 83; TEMP 36.7; O2SAT 98; BMI 25.0
--- NOTE | 2024-05-14 16:05 | AM.OFFWIN_ITS ---
Intake Vital Signs 05/14/24 16:05 Height 5 ft 10 in Weight 174 lb BMI 25.0 BP 118/76 Blood Pressure Location Rt brachial Position Sitting Pulse 83 Pulse Source Pulse Oximeter Temp 98.1 F Temp Source Oral Pulse Oximetry (%) 98 Oxygen Delivery Method Room Air Intake Visit Reasons: EP-sore throat, congested, cough, rolling nose Intake Note: pt c/o sore throat, congested, cough, runny nose. Started middle of last week. Productive cough w/ green phlegm started yesterday Patient Tobacco Use Status: Former Tobacco user Allergies acetaminophen [From TYLENOL] Allergy (Severe, Verified 05/14/24 16:06) ANAPHYLAXIS banana [BANANA] Allergy (Intermediate, Verified 05/14/24 16:06) ITCHING tree nuts Allergy (Intermediate, Uncoded 05/14/24 16:06) unknown FRUIT Allergy (Mild, Uncoded 05/14/24 16:06) ITCHING VEGETABLES,FRESH Allergy (Mild, Uncoded 05/14/24 16:06) ITCHING Do you need a note to return to daycare/school/sports/work: Yes HPI HPI Comments History of Present Illness Details Patient is a 28-year-old male complaining of 6 days of a cough, sore throat, congestion and runny nose. He states it started with a runny nose and that has mostly resolved but now he has started coughing up green mucus since yesterday. He does admit to a history of asthma and does use a albuterol inhaler as needed and has needed to use it more than normal over the last 6 days. He reports it helps temporarily with his shortness of breath. 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 He denies any fevers. [facility] Medical History Upper respiratory infection due to [place] influenza virus Social History Patient Tobacco Use Status: Former Tobacco user Review of Systems Const All systems reviewed & are unremarkable except as noted in HPI and below Physical Exam Vital Signs: Last Vital Signs Temp 98.1 F 05/14/24 16:05 Pulse 83 05/14/24 16:05 BP 118/76 05/14/24 16:05 Pulse Ox 98 05/14/24 16:05 Oxygen Delivery Method Room Air 05/14/24 16:05 BMI result Body Mass Index 25.0 Const General: cooperative, healthy appearing, comfortable and no acute distress Orientation/consciousness: patient oriented x3 Limitations: no limitations HEENT Head: Yes normal to inspection Ears: hearing grossly normal bilaterally, external ears normal and TM's normal bilaterally General nose exam: Normal external nose present, Normal nares present and No nasal discharge present Face and sinus: Yes normal facial exam and Yes sinuses nontender Mouth: Normal oral and palatal mucosa present and moist mucous membranes Throat: Yes tonsils normal, Yes uvula midline and Yes posterior oropharynx abnormal (Erythema) Eyes General: appearance normal, both eyes and all related structures Neck Neck: Yes normal visual inspection Resp Effort & Inspection: normal respiratory effort, able to speak in complete sentences, Actively coughing, no respiratory distress, not tachypneic, no tripod positioning and no use of accessory muscles Auscultation: clear to auscultation bilaterally Cardio Rate: regular rate Rhythm: regular rhythm Heart sounds: normal S1 and S2 Skin General skin exam: no rashes or lesions noted Neuro General: patient oriented x3 Extrem General: Yes normal to inspection and Yes no clubbing, cyanosis or edema Results AMB Rapid Strep AMB Rapid Strep Negative Last Edit by Darius Coreas CMA on 05/14/24 16:21 Assessment & Plan Assessment & Plan (1) Upper respiratory tract infection: Code(s): J06.9 - Acute upper respiratory infection, unspecified Qualifiers: URI type: acute pharyngitis Pharyngitis/tonsillitis etiology: unspecified etiology Qualified Code(s): J02.9 - Acute pharyngitis, unspecified Plan: Rapid strep negative. Vital signs are stable, patient is well-appearing, lung sounds are clear. Recommended keep using his albuterol inhaler as needed. We tested for flu COVID and RSV however we will not be prescribing Paxlovid if he is positive for COVID, he can just use [id number] medications to treat his symptoms. Advised to stay out of work until he is 24 hours symptom free if he does get diagnosed with COVID. Plan See above Coding Level of Care Code Est Pt Level 3 (02294) Diagnoses Acute pharyngitis, unspecified etiology J02.9 URI type: acute pharyngitis Pharyngitis/tonsillitis etiology: unspecified etiology
== END 2024-05-14 16:32 | disposition home or self-care (01) ==
PROVIDERS: PCP Internal Medicine; Visit Provider Physician Assistant
DX: Z13.9 Encounter for screening, unspecified (principal); J02.9 Acute pharyngitis, unspecified

== ENCOUNTER 2024-05-14 16:04 | Outpatient (REF) | payer OTHER, SELFPAY ==
[2024-05-15 11:27] LABS: Influenza A PCR NEGATIVE (Negative); Influenza B PCR NEGATIVE (Negative); Resp Syncy Virus RNA Qual PCR NEGATIVE (Negative); SARS COV2 PCR INHOUSE NEGATIVE (Negative)
== END 2024-05-14 16:05 | disposition home or self-care (01) ==
LOC: HO.LAB 16:04
PROVIDERS: Physician Assistant; PCP Internal Medicine
DX: J06.9 Acute upper respiratory infection, unspecified (principal)
CPT/HCPCS: 0241U; 87880

== ENCOUNTER 2024-08-13 14:59 | Outpatient (AMB) | payer OTHER, SELFPAY ==
--- OUTSIDE RECORDS SUMMARY | 2024-08-13 15:01 | XMS_ITS | Data Portability ---
Author Organization [place] - [facility], Allergy Address [address] [address] Assessment Encounter Date Assessment Date Assessment LastModified by Organization Details LastModified Time 04/18/2024 04/18/2024 Patient with chronic nasal drainage and hypersalivati on. Suspect underlying allergy. Possibly related to cannabis. We will try skin testing [email or web address] Not available 04/18/2024 15:17:40 Plan of Treatment Reminders Order Date Submit Date Provider Last Modified By Organization Details Last Modified Time Details Appointments None recorded. Lab None recorded. Referral None recorded. Procedures allergy testing, skin prick (PROC) 2023 024 [email or web address] Not available 4 08:17:27 intradermal allergy skin testing (PROC) 2023 024 [email or web address] Not available 4 08:17:27 Surgeries None recorded. Imaging None recorded. Medication Orders None recorded. Patient TargetsNo targets recorded. Patient InstructionsNo instructions recorded. Reason for Referral None Reported. Problems Name Problem SNOMED Code Status Onset Date Resolution Date Notes Provider Name and Address Organization Details Recorded Time Chronic pharyngit is [id number] Active 2023 Chronic pharyngiti s; Note: Date Diagnosed: 01/06/2024 5:12 PM (J31.2) Not Available [facility] 4 03:07:09 Allergic rhinitis 52132813 Active 2023 Other allergic rhinitis; Note: Date Diagnosed: 10/29/2015 4:49 PM (J30.89) Not Available [facility] 4 03:07:11 Hypertrop hy of nasal turbinate s 04682017 Active 2023 Hypertroph y of nasal turbinates ; Note: Date Diagnosed: 10/24/2015 8:40 AM (J34.3) Not Available [facility] 4 03:07:11 Deviated nasal septum 451572415 Active 2023 Deviated nasal septum; Note: Date Diagnosed: 10/24/2015 8:40 AM (J34.2) Not Available [facility] 4 03:07:11 Polyp of nasal cavity 498675949 Active 2023 Polyp of nasal cavity; Note: Date Diagnosed: 10/29/2015 4:49 PM (J33.0) Not Available [facility] 4 03:07:11 Problem Notes None recorded. Medical Equipment None Reported. Medications Name Sig Start Date Stop Date Status Note LastModified by Organization Details LastModified Time eq sinus 12-hour 120mg tab TAKE 1 TABLET BY MOUTH EVERY 12 HOURS 04/18 completed Not Available Not Available Not Available amoxicill in 500 mg capsule TAKE 1 CAPSULE BY MOUTH THREE TIMES DAILY 04/18 completed Not Available Not Available Not Available azithromy beatrice 250 mg tablet TAKE 2 TABLETS BY MOUTH ON DAY 1, AND THEN TAKE 1 TABLET BY MOUTH ONCE A DAY ON DAY 2 THROUGH DAY 5 04/18 completed Not Available Not Available Not Available ofloxacin 0.3 % eye drops INSTILL 1 DROP INTO AFFECTED EYE(S) 6 TIMES A DAY FOR 2 DAYS THEN 1 DROP 4 TIMES A DAY FOR 5 DAYS active Not Available Not Available No t Available sucralfat e 100 mg/mL oral suspensio n TAKE 10 ML BY MOUTH TWICE DAILY BEFORE MEAL(S) active Not Available Not Available No t Available sumatript an 50 mg tablet active Not Available Not Available Not Available penicilli n V potassium 500 mg tablet TAKE 1 TABLET BY MOUTH TWICE DAILY active Not Available Not Available No t Available famotidin e 20 mg tablet active Medicati on ID: [id number] B rand Name: grover cruz Send Method: E-Prescr ibed Sub s Allowed: subs OK Medic ationGen ericName : famotidi ne Not Available Not Available Not Available prednisol one acetate 1 % eye drops,kael pension INSTILL 1 DROP INTO RIGHT EYE 4 TIMES DAILY FOR 1 WEEK. SHAKE WELL 04/18 completed Not Available Not Available Not Available methocarb lyndsey 750 mg tablet TAKE 1 TABLET BY MOUTH EVERY 6 HOURS NEEDED FOR MUSCLE SPASM 04/18 completed Not Available Not Available Not Available erythromy beatrice 5 mg/gram (0.5 %) eye ointment APPLY 1 APPLICAT ION OF OINTMENT TO LEFT EYE DIRECTED THREE TIMES DAILY active Not Available Not Available No t Available prednison e 50 mg tablet TAKE 1 TABLET BY MOUTH ONCE DAILY FOR 5 DAYS 04/18 completed Not Available Not Available Not Available omeprazol e 20 mg capsule,d elayed release active Medicati on ID: [id number] B rand Name: omeprazo le Send Method: E-Prescr ibed Sub s Allowed: subs OK Medic ationGen ericName : omeprazo le Not Available Not Available Not Available azelastin e 137 mcg (0.1 %) nasal spray Inhale 2 spray twice a day as directed 2023 active Medicati on ID: [id number] D uration Value: 30 Brand Name: azelasti ne Send Method: E-Prescr ibed Sub s Allowed: subs OK Medic ationGen ericName : azelasti ne Not Available Not Available Not Available albuterol sulfate HFA 90 mcg/actua tion aerosol inhaler 04/18 completed Medicati on ID: [id number] B rand Name: albutero l sulfate Send Method: E-Prescr ibed Sub s Allowed: subs OK Medic ationGen ericName : albutero l sulfate Not Available Not Available Not Available hydroxyzi ne HCl 10 mg tablet TAKE 1 TABLET BY MOUTH EVERY 8 HOURS NEEDED FOR ANXIETY active Not Available Not Available No t Available fluticaso ne propionat e 50 mcg/actua tion nasal spray,kael pension 2 puff once a day 2023 active Medicati on ID: [id number] D uration Value: 30 Brand Name: fluticas one propiona te Send Method: E-Prescr ibed Sub s Allowed: subs OK Medic ationGen ericName : fluticas one propiona te Not Available Not Available Not Available cyclobenz aprine 5 mg tablet TAKE 1 TABLET BY MOUTH THREE TIMES DAILY NEEDED FOR MUSCLE SPASM 04/18 completed Not Available Not Available Not Available Flovent HFA 220 mcg/actua tion aerosol inhaler INHALE 1 PUFF BY MOUTH TWICE DAILY active Not Available Not Available No t Available Vitals Date Recorded Body height Body mass index (BMI) Body weight Provider Name and Address Organization Details Last Updated DateTime 04/18/2024 177.8 cm 24.4 kg/m2 48433.7 g Luke [facility] 04/18/2024 15:03:19 Social History None recorded. Functional Status None recorded. Mental Status None recorded. Family History Nothing Reported. Medical History Condition Response Anemia Y Migraines Y Anxiety Y Asthma Y Past Encounters Encounter ID Performer Location Encounter Start Date Encounter Closed Date Diagnosis/Indication Diagnosis SNOMED-CT Code Diagnosis ICD10 Code [id number] KWADWO RAMIREZ MD [facility] [address] [address] 04/18/2024 14:22:56 04/18/2024 16:45:07 Allergic rhinitis 14290403 J30.9 Deviated nasal septum 12 6133837 J34.2 [id number] DEONDRE GOMEZ RN All[facility] [address] [place] [id number] 04/18/2024 16:48:57 04/18/2024 16:50:45 Allergic rhinitis 50270121 J30.9 Health Concerns Section Related Observation LastModified by Organization Detai ls LastModified Time None Recorded Concern Status LastModified by Organization Details LastModified Time None Recorded Advance Directives Directive None Recorded Payers Encounter Date Sequence Insurance Name Policy Number Policy August Covered Member ID August Member ID Guarantor Name 04/18/2024 1 [employer] - [facility] [id number] Orion Rankin [id number] Orion Rankin 04/18/2024 1 [employer] [facility] [id number] Orion Rankin [id number] Orion Rankin Notes Date Note Type Note Provider Name and Address Organization Details Recorded Time 04/18/2024 text/html Patient still no aurelia throat irritation and lots of saliva/nasal drainage. He tried to stop smoking marijuana briefly but did not really notice a difference. He reports he smokes a fair amount. Daily use of 1-2 jointsFeels sx worse when he rolls himselflast visit : Sx started in March. Feels like irritation in back of throat. found to have GERD and esophageal irritation. Placed on omeprazole and famotidine. Smokes marijuana intermittently No tobacco Eating and drinking feels tight sometimes Hx of food allergy and environmental allergy. He reports intermittent use of Zyrtec and occasional Flonase but does not feel they are helping his allergy symptoms Patient reports intermittent use of his albuterol inhaler over the last few weeks due to pollen. Last episode was a couple of days ago. Examination today shows cerumen impactions bilaterally, septal deviation to the left side with the spur on the right and moderate to severe inferior turbinate hypertrophy. The oral cavity/oropharynx, tonsils and neck are normal. Transnasal fiberoptic examination shows polypoid degeneration of the right middle turbinate and significant inferior turbinate hypertrophy on that side. On the left side no obvious polyps are seen with the scope, nasopharynx is clear although there is a hyper amount of saliva and clear secretions. Laryngoscopy is normal. I suspect the hyper secretions is due to marijuana use and allergy. Suggest Flonase 2 sprays each nostril once daily, Astelin 2 sprays each nostril twice daily and Zyrtec. I explained that he needs to be consistent with these medications every day regardless of his symptoms at least for the next 6-8 weeks. We can then reevaluate things and consider imaging or allergy testing. KWADWO DE LEON MD [address] [place] [address], [place], [phone], [facility] - [facility] 04/18/2024 15:39:12
[2024-08-13 15:06] VITALS: BP 124/76; PULSE 77; TEMP 36.8; O2SAT 97; BMI 25.6
--- NOTE | 2024-08-13 15:06 | AM.OFFWIN_ITS ---
Intake Vital Signs 08/13/24 15:06 Height 5 ft 10 in Weight 178 lb 6 oz BMI 25.6 BP 124/76 Blood Pressure Location Lt brachial Position Sitting Pulse 77 Pulse Source Pulse Oximeter Temp 98.2 F Temp Source Temporal Artery Scan Pulse Oximetry (%) 97 Oxygen Delivery Method Room Air Intake Visit Reasons: EP-lt ear cyst and pain Intake Note: Pt presents to the office today for c/o left cyst behind his earlobe x1 week ago. Pt states he tried popping it yesterday. Pt states it is painful today. Patient Tobacco Use Status: Former Tobacco user Allergies acetaminophen [From TYLENOL] Allergy (Severe, Verified 08/13/24 15:09) ANAPHYLAXIS banana [BANANA] Allergy (Intermediate, Verified 08/13/24 15:09) ITCHING tree nuts Allergy (Intermediate, Uncoded 08/13/24 15:09) unknown FRUIT Allergy (Mild, Uncoded 08/13/24 15:09) ITCHING VEGETABLES,FRESH Allergy (Mild, Uncoded 08/13/24 15:09) ITCHING HPI HPI Comments History of Present Illness0 Details History of Present Illness The patient is a 29-year-old male presenting with an left earlobe abscess. He reports the presence of a large lump on his ear for the past week and a half. The patient admits to manipulating the area, trying to express its contents despite resultant pain and issues. He described releasing some purulent material followed by increasing and decreasing swelling. Recently, he experienced significant bleeding from the lower part of the ear due to self-inflicted trauma while attempting drainage. Concerns were raised about possible infection due to its presentation and handling progression, and no formal medical intervention was sought before this visit. Physical Exam General: Cooperative, healthy appearing, comfortable, no acute distress and well developed Orientation: Patient oriented x3 Limitations: No limitations Head: Normal to inspection Ears: Hearing grossly normal bilaterally, small lump on posterior left earlobe with scant bleeding, indurated. no warmth Nose: Normal external nose present Face and sinus: Normal facial exam Eyes: Appearance normal, both eyes and all related structures Neck: Normal visual inspection and Yes full ROM Respiratory: Normal respiratory effort and able to speak in complete sentences. Skin: No rashes or lesions noted Neuro: Patient oriented x3 Extremities: Normal to inspection [facility] Medical History Upper respiratory infection due to [place] influenza virus Social History Patient Tobacco Use Status: Former Tobacco user Review of Systems Const All systems reviewed & are unremarkable except as noted in HPI and below Physical Exam Vital Signs: Last Vital Signs Temp 98.2 F 08/13/24 15:06 Pulse 77 08/13/24 15:06 BP 124/76 08/13/24 15:06 Pulse Ox 97 08/13/24 15:06 Oxygen Delivery Method Room Air 08/13/24 15:06 BMI result Body Mass Index 25.6 Assessment & Plan Assessment & Plan (1) Abscess: Code(s): L02.91 - Cutaneous abscess, unspecified Plan: Plan - Prescribe doxycycline for five days to address potential bacterial infection as unable to drain abscess, indurated and bleeding. - No alcohol consumption recommended with doxycycline due to potential exacerbation of side effects such as nausea, vomiting, and diarrhea. - Monitor the abscess for any further drainage and the progression of symptoms. Maintain the area clean and dry. - Encourage completing the full course of antibiotics even if symptoms improve earlier to ensure resolution and prevent recurrence. - Instructed the patient on hair washing and hygiene; advised to avoid applying topical agents such as Neosporin, vaseline is fine. Patient was informed and verbally consented to the use of an ambient scribe for clinic note documentation during this visit. Medications: New doxycycline hyclate 100 mg PO BID 10 tabs 0RF Coding Level of Care Code New Pt Level 3 (29781) Diagnoses Abscess L02.91
== END 2024-08-13 15:23 | disposition home or self-care (01) ==
PROVIDERS: PCP Internal Medicine; Visit Provider Physician Assistant
DX: L02.91 Cutaneous abscess, unspecified (principal)

== ENCOUNTER → 2024-08-13 14:59 | Outpatient (BNVA) | payer OTHER, SELFPAY | PROVIDERS: PCP Internal Medicine; Visit Provider Physician Assistant ==

== ENCOUNTER 2024-11-12 08:29 | Outpatient (REF) | payer OTHER, SELFPAY ==
--- NOTE | ~2024-11-12 | XR_ITS ---
EXAMINATION: XR ANKLE 3 OR MORE VIEWS RIGHT HISTORY: S99.911A - Unspecified injury of right ankle, initial encounter COMPARISON: There are no prior studies available for comparison. FINDINGS: Three views of the right ankle are submitted. Osseous mineralization is normal. There is no fracture or dislocation. The joint spaces are preserved. The soft tissues are unremarkable. XR/XR ankle RT min 3V IMPRESSION: Unremarkable examination of the right ankle. Electronically signed by: Dre Sherwood MD 11/12/2024 09:20 AM EDT
--- OUTSIDE RECORDS SUMMARY | 2024-11-12 09:28 | XMS_ITS | Encounter Summary ---
Author Organization [employer] Address [address] [place] [address] Care Team Providers Care Internal Medicine Veterinary Technician Name Role Phone Maggi Marques MD Primary Care Provider [phone] Reason for Visit * Imaging (Routine) - Pending Review Specialty Diagnoses / Procedures Referred By Contac t Referred To Contact Radiology Diagnoses Flank pain Pelvic pain Hematuria, unspecified type Procedures US Retroperitoneal Complete Maggi Marques MD [address] [place] [address] Phone: tel: fax: [facility] Referral ID Status Reason Start Date Expiration Date V isits Requested Visits Authorized [id number] Pending Review 10/18/2024 10/18/2025 1 1 Encounter Details Date Type Department Care Team (Latest Contact Info) Description 10/18/2024 5:33 PM EST - 10/18/2024 11:59 PM EST Hospital Encounter Radiology Department - [address] [address] Discharge Disposition: Home or Self Care Social History Tobacco Use Types Packs/Day Years Used Date Smoking Tobacco: Former Cigarettes Smokeless Tobacco: Never Quit: 08/29/2015 Alcohol Use Standard Drinks/Week Comments Yes 0 (1 standard drink = 0.6 oz pur e alcohol) Sex and Gender Information Value Date Recorded Sex Assigned at Male 07/05/2024 3:14 PM EST Legal Sex Male 2:16 AM EST Gender Identity Male 07/05/2024 3:14 PM EST Sexual Orientation Straight 07/05/2024 3: 14 PM EST documented as of this encounter Medications at Time of Discharge albuterol HFA (PROAIR HFA ; PROVENTIL HFA ; VENTOLIN HFA) 90 mcg/actuation inhaler Inhale 2 Puffs into the lungs every 4 hours as needed for Cough or Wheezing. 05/29/2024 esomeprazole (NexIUM) [address] capsule Take 1 capsule (20 mg total) by mouth 1 (one) time each day before breakfast. Do not open capsule. 90 each 1 07/11/2024 famotidine (PEPCID) 20 mg tablet Take 1 Tablet by mouth at bedtime as needed for Heartburn. 05/29/2024 fluticasone propionate (FLONASE) 50 mcg/actuation nasal spray 2 Sprays by Nasal route daily. 08/11/2023 albuterol 2.5 mg /3 mL (0.083 %) nebulizer solution Take 1 Vial by nebulization every 4 hours as needed for Wheezing or Cough. 05/12/2021 documented as of this encounter Discharge Disposition Disposition Code Departure Means Destination Home or Self Care documented in this encounter Plan of Treatment Upcoming Encounters Date Type Department Care Team (Late st Contact Info) Description 01/02/2025 3:00 PM EDT Office Visit Gastroenterology - [place] [address] [facility] [address] [facility] [address] [place] [phone] Lizzeth Queen [place] [address] [facility] [address] [place] [address] documented as of this encounter Procedures Procedure Name Priority Date/Time Associated Diagnosis Comments US RETROPERITONEAL COMPLETE Routine 10/18/2024 5:54 PM EST Flank pain Pelvic pain Hematuria, unspecified type documented in this encounter Results * US Retroperitoneal Complete (10/18/2024 5:54 PM EST) Anatomical Region Laterality Modality Body Ultrasound 10/19/2024 10:0 3 AM EST Impressions 10/19/2024 10:05 AM EST Small post void residual. Otherwise, unremarkable exam. -------- FINAL REPORT -------- Dictated By: Aiyana Maradiaga Dictated Date: 10/19/2024 10:03 ET Assigned Physician: Aiyana Maradiaga Reviewed and Electronically Signed By: Aiyana Maradiaga Signed Date: 10/19/2024 10:05 ET Workstation ID: [id number] Transcribed By: Self Edit Transcribed Date: 10/19/2024 10:03 ET Narrative 10/19/2024 10:05 AM EST US RETROPERITONEAL COMPLETE HISTORY: ??Pain. Hematuria. Prior study: Right upper quadrant ultrasound 03/22/2022. FINDINGS: ??The right kidney measures 11.8 cm in length. The left kidney measures 10.3 cm in length. ??Both kidneys demonstrate normal echotexture. ??No hydronephrosis, masses, calculi, or perinephric collections are seen. The bladder is unremarkable. Prevoid bladder volume measures 312 cc. Postvoid residual is 114 cc. Normal bilateral ureteral jets were seen in the bladder. Prostate volume is estimated at 14 cc. Procedure Note Aiyana Maradiaga MD - 10/19/2024 US RETROPERITONEAL COMPLETE HISTORY: Pain. Hematuria. Prior study: Right upper quadrant ultrasound 03/22/2022. FINDINGS: The right kidney measures 11.8 cm in length. The left kidneymeasures 10.3 cm in length. Both kidneys demonstrate normal echotexture.No hydronephrosis, masses, calculi, or perinephric collections are seen. The bladder is unremarkable. Prevoid bladder volume measures 312 cc.Postvoid residual is 114 cc. Normal bilateral ureteral jets were seen inthe bladder. Prostate volume is estimated at 14 cc. IMPRESSION: Small post void residual. Otherwise, unremarkable exam. -------- FINAL REPORT -------- Dictated By: Aiyana Maradiaga Dictated Date: 10/19/2024 10:03 ET Assigned Physician: Aiyana Maradiaga Reviewed and Electronically Signed By: Aiyana Maradiaga Signed Date: 10/19/2024 10:05 ET Workstation ID: [id number] Transcribed By: Self Edit Transcribed Date: 10/19/2024 10:03 ET us Maggi Marques MD IMG US PROCEDURES Final Result documented in this encounter Visit Diagnoses Not on filedocumented in this encounter Care Teams Internal Medicine Veterinary Technician Relationship Specialty Start Date End Date Maggi Marques MD [address] [place] [address] PCP - General Internal Medicine 01/11/19 documented as of this encounter
--- OUTSIDE RECORDS SUMMARY | 2024-11-12 09:28 | XMS_ITS | Encounter Summary ---
Author Organization [facility] Address [address] [place] [address] Care Team Providers Care Trailer Chief Name Role Phone Maggi Marques MD Primary Care Provider [phone] Reason for Visit * Reason Onset Date Comments Abdominal Pain 10/17/2024 Encounter Details Date Type Department Care Team (Late st Contact Info) Description 10/17/2024 Telephone Adult Medicine [facility] [address] [place] [phone] Maggi Marques MD [address] [place], [place] [phone] Abdominal Pain Social History Tobacco Use Types Packs/Day Years [...] PM EST documented as of this encounter Progress Notes * Hayde Finn RN - 10/17/2024 4:39 PM EST Called and spoke with pt. Pt c/o right mid to lower abd pain since yesterday sts only 2-11/05 deniesn/v/d denies urinary sx denies fever last bm one hour ago normal. Appt for tomorrow advised for increase pain or any new or worsening sx or concerns to go to er for evaluation. * Judie Dueñas - 10/17/2024 4:26 PM EST Patient call requires triage: Symptoms patient is presenting: pain in abdomin to the right of belly button on side, sore to the touch How long has patient had these symptoms?: 2 days For ALL patients calling to schedule any appointment (routine, sick visit, follow up, consult, etc.) in the outpatient setting please ask the following questions: Do you have fever of higher than 101, sore throat with difficulty swallowing or severe shortness ofbreath? no If YES to any of these above symptoms, send a message to triage and do not book. Red dot. If no, an audio or video visit should be booked. Have you had close contact with someone with Coronavirus in the last 14 days? no Have you traveled abroad? no Have you traveled recently to another state outside of [place], [place], [place], [place], [place], [place], [place]? no o If yes, did you quarantine for 14 days or have a negative covid test? no If yes to any of the above, patient is not to be scheduled in office until after 14 day quarantine or negative covid test. If pain or injury related was it due to an accident at work or from a motor vehicle accident? If yes, date of accident/Injury: No If yes, gather 3rd democrat insurance information Third Green Party Information: not applicable PCP: Maggi Marques MD Payor: [employer] / Plan: [employer] / Product Type: *No Product type* / documented in this encounter Plan of Treatment Upcoming Encounters Date Type Department Care Team (Late st Contact Info) Description 01/02/2025 3:00 PM EDT Office Visit Gastroenterology - [place] [address] [place] [phone] Lizzeth Queen PA [address] [place] [address] documented as of this encounter Visit Diagnoses Not on filedocumented in this encounter Care Teams Trailer Chief Relationship Specialty Start Date End Date Maggi Marques MD [address] [place] [address] PCP - General Internal Medicine 01/11/19 documented as of this encounter
--- OUTSIDE RECORDS SUMMARY | 2024-11-12 09:28 | XMS_ITS | Clinical Summary ---
Author Organization [address] [facility] Address [address] [place] [address] Phone Care Team Providers Care Automated Cutting Machine Operator Name Role Phone Maggi Marques MD Primary Care Provider [phone] Allergies Active Allergy Reactions Criticality Noted Date Comments Banana 08/11/2023 Food Allergy Formula Itching 03/05/2008 Itching tongue with bananas Nut - Unspecified 08/11/2023 Other Runny nose Medium 02/06/2007 Seasonal allergies Medications albuterol HFA (PROAIR HFA ; PROVENTIL HFA ; VENTOLIN HFA) 90 mcg/actuation inhaler Inhale 2 Puffs into the lungs every 4 hours as needed for Cough or Wheezing. 05/29/20 24 Active famotidine (PEPCID) 20 mg tablet Take 1 Tablet by mouth at bedtime as needed for Heartburn. 05/29/20 24 Active fluticasone propionate (FLONASE) 50 mcg/actuation nasal spray 2 Sprays by Nasal route daily. 08/11/20 23 Active esomeprazole (NexIUM) [address] capsule Take 1 capsule (20 mg total) by mouth 1 (one) time each day before breakfast. Do not open capsule. 90 each 1 07/11/20 24 025 Active multivitamin with minerals tablet Take 1 tablet by mouth 1 (one) time each day. Active ascorbic acid (VITAMIN C) 500 mg CR capsule Take 1 capsule (500 mg total) by mouth 1 (one) time each day. Active albuterol 2.5 mg /3 mL (0.083 %) nebulizer solution Take 1 Vial by nebulization every 4 hours as needed for Wheezing or Cough. 05/12/20 025 Discontinued Active Problems Problem Noted Date Diagnosed Date Incomplete RBBB 05/05/2023 Gastroesophageal reflux disease with esophagitis 06/03/2019 Abdominal pain 03/21/2019 Anxiety 03/21/2019 Encounters Date Type Department Care Team Description 10/23/2024 3:00 PM EST Office Visit Adult Medicine [address] [phone] Isra Zuñiga PA Right-sided chest wall pain (Primary Dx) 10/19/2024 Telephone Adult Medicine [address] [phone] Elizabeth Degroot MA Error 10/18/2024 5:33 PM EST - 10/18/2024 11:59 PM EST Hospital Encounter Radiology Department - [address] [phone] Discharge Disposition: Home or Self Care 10/18/2024 11:15 AM EST Office Visit Adult [address] [phone] Maggi Marques MD Flank pain (Primary Dx); Pelvic pain; Hematuria, unspecified type; Urinary hesitancy 10/17/2024 Telephone Adult [address] [phone] Maggi Marques MD Abdominal Pain 09/27/2024 3:20 PM EST Office Visit Gastroenterology - [place] [address] [place] [phone] Lizzeth Queen PA Gastroesophageal reflux disease with esophagitis without hemorrhage (Primary Dx) 08/24/2024 6:25 PM EST Office Visit [facility] [address] [place] [phone] Timmy Morgan PA Abscess (Primary Dx) from Last 3 Months Immunizations Name Administration Dates Next Due DTP 07/10/2002, 8,01/26/1997,11/28,1996 AHtB-DDL-YSI (Pentacel) 2mo to less than 5yo 03/12/1998,01/26/1997,1996,09/21 H1N1 Inj Preservative Free 10/14/2009 HPV, Quadrivalent 09/28/2013,06/05/2013,07/11/20 12 Hepatitis A Pediatric (Havri x; Vaqta) 12mo to less than 19yo 04/04/2002,10/13/2001 Hepatitis B Pediatric (Enger ix B; Recombivax HB) to less than 20 yo 04/17/1997,1996,1996 Hib (HbOC) 03/12/1998, 7,1996,09/21 Influenza Quadravalent, MDCK , 0.5ml, preservative free (Flucelvax) 6mo and older 06/02/2022,06/17/2021,06/19/2019 Influenza trivalent, 0.5mL, preservative free (Fluarix; FluLaval; Fluzone) ages 6mo and older (Afluria) 3 years and older 06/29/2015,05/17/2014,06/05/2013,06/07,06/29/2011,06/23/2010,05/31/2009 ,06/08/2008,07/02/2007,07/01/2006 Influenza trivalent, with pr eservative (Fluzone; Afluria) 6mo and older 06/29/2015,06/05/2013,06/07/2012,06/29,06/23/2010,05/31/2009,06/08/2008 ,07/02/2007 MMR, measles mumps and rubel la Live (Priorix; M-M-R II) 12mo and older 10/27/2000,08/01/1997 Meningococcal MCV4P 09/28/2013,06/17/2009 OPV 07/10/2002, 8,03/26/1997,01/26,1996 Pneumococcal polysaccharide 23 valent (Pneumovax 23) 2yo and older 06/19/2019 Td Tetanus diptheria (Tdvax) 7yo and older 09/15/2020,06/18/2017 Tdap Tetanus diptheria acell ular pertussis (Boostrix; Adacel) 7yo and older 03/05/2008 Varicella live (Varivax) 12m o and older 03/05/2008,08/01/1997 Medical History Medical History Date Comments Eczema DX:Eczema Migraine 07/2009 DX:Migraine; COM MENT: amitryptiline started- normal Qt/QTc EKG 07-31-09; as of 06-07 no meds and doing well Low back pain DX:Low back pain Beta thalassemia trait DX:Beta t halassemia trait; COMMENT: Beta Thal Trait Vitamin D deficiency 09/28/2013 DX:Vitamin D deficiency; COMMENT: On vit d per Dr. Dia Allergic rhinitis 02/06/2007 DX:Allergic rh initis Asthma 07/04/2006 DX:Asthma Foot lesion 11/02/2017 DX:Foot lesion; COMMENT: 09/08/17: podiatry referral - did not keep appt and attempts to reschedule not successful Headache 10/18/2017 DX:Headache; COM MENT: 09/26/17- normal MRI with and without contrast 09/04/17: normal Brain CT 10/17/17: Neuro Dr. Lance: migraine; anxiety; start sumatriptan succinate tab 50 mg 1 tab PO once daily PRN ; amitriptyline 10 mg daily ; F/U 6 wk 10/28/17: no further headaches and didn't use either med Esophagitis 06/03/2019 DX:Esophagitis Family History Medical History Relation Name Comments Diabetes Father CHF, cholestero l, atrial fib, VSD, CHF Other: myocardial infarctation Maternal Grandfather age 52 Cataracts Maternal Grandmother Heart attack Mother Other: epilepsy Other maternal aun t Diabetes Paternal Grandmother Relation Name Status Comments Father Alive Josr Rankin 1964 Maternal Grandfather Maternal Grandmother Mother Alive Dagmar Mulligantiz 196 2 Other Paternal Grandmother Sister Alive Kassie 1990 Social History Tobacco Use Types Packs/Day Years Used Date Smoking Tobacco: Former Cigarettes Smokeless Tobacco: Never Quit: 08/29/2015 Tobacco Cessation:Counseling Given: Not Answered Alcohol Use Standard Drinks/Week Comments Yes 0 (1 standard drink = 0.6 oz pur e alcohol) Sex and Gender Information Value Date Recorded Sex Assigned at Male 07/05/2024 3:14 PM EST Legal Sex Male 2:16 AM EST Gender Identity Male 07/05/2024 3:14 PM EST Sexual Orientation Straight 07/05/2024 3: 14 PM EST Obstetrics History Last Filed Vital Signs Vital Sign Reading Time Taken Comments Blood Pressure 112/70 10/23/2024 3:28 PM EST Pulse 72 10/23/2024 3:28 PM EST Temperature 36.6 ??C (97.9 ??F) 10/23/2024 3:28 PM ES T Respiratory Rate 14 10/23/2024 3:28 PM EST Oxygen Saturation 98% 10/23/2024 3:28 PM EST Inhaled Oxygen Concentration - - Weight 82.7 kg (182 lb 6.4 oz) 10/23/2024 3:28 P M EST Height 177.8 cm (5' 10 ) 10/23/2024 3:28 PM EST Body Mass Index 26.17 10/23/2024 3:28 PM EST Plan of Treatment Upcoming Encounters Date Type Department Care Team (Late st Contact Info) Description 01/02/2025 3:00 PM EDT Office Visit Gastroenterology - [place] [address] [place] [phone] Lizzeth Queen PA [address] [place] [address] Health Maintenance Due Date Last Done Comments Hepatitis A Vaccines (2 of 2 - 2-dose series) 10/05/2002 04/04/2002, 10/13/2001 Pneumococcal Vaccine: Pediatrics (0 to 5 Years) and At-Risk Patients (6 to 64 Years) (2 of 2 - PCV) 06/19/2020 06/19/2019 Social Influencers of Health Screening 08/07/2022 COVID-19 Vaccine ( season) 2024 12/01/2021, 12/13/2020, 11/19/2020 Influenza Vaccine (#1) 2024 2, 06/17/2021, 06/19/2019, Additional history exists Depression Screening 01/31/2025 02/01/2024 Cholesterol Screening (Lipid Panel) 07/15/2027 07/15/2022 DTaP,Tdap,and Td Vaccines (9 - Td or Tdap) 09/15/2030 09/15/2020, 06/18/2017, 03/05/2008, Additional history exists Hepatitis B Vaccines Completed 04/17/1997, 1996, 1996 HIB Vaccines Completed 03/12/1998, 02/26, 01/26/1997, Additional history exists MMR Vaccines Completed 10/27/2000, 08/01/1997 IPV Vaccines Completed 07/10/2002, 02/26, 03/12/1998, Additional history exists Varicella Vaccines Completed 03/05/2008, 08/01/1997 HPV Vaccines Completed 09/28/2013, 03/2013, 07/11/2012 Meningococcal ACWY Vaccine Completed 09/28/2013, HIV Screening Completed 07/15/2022 Hepatitis C Screening Completed 07/15/2022 Meningococcal B Vacine Aged Out No lo nger eligible based on patient's age to complete this topic RSV Immunization Patients Under 20 months Aged Out No longer eligible based on patient's age to complete this topic Procedures Procedure Name Priority Date/Time Associated Diagnosis Comments CHLAMYDIA TRACHOMATIS AND NEISSERIA GONORRHOEAE PCR Routine 10/19/2024 9:17 AM EST Abdominal pain, unspecified abdominal location US RETROPERITONEAL COMPLETE Routine 10/18/2024 5:54 PM EST Flank pain Pelvic pain Hematuria, unspecified type CHLAMYDIA TRACHOMATIS AND NEISSERIA GONORRHOEAE PCR Routine 10/18/2024 12:26 PM EST Pelvic pain Urinary hesitancy CULTURE URINE Routine 10/18/2024 12:26 PM EST Pelvic pain Urinary hesitancy CBC WITH AUTO DIFFERENTIAL Routine 10/18/2024 12:25 PM EST Flank pain Pelvic pain Hematuria, unspecified type COMPREHENSIVE METABOLIC PANEL Routine 10/18/2024 12:25 PM EST Flank pain Pelvic pain Hematuria, unspecified type CBC AND DIFFERENTIAL Routine 10/18/2024 12:25 PM EST Flank pain Pelvic pain Hematuria, unspecified type POC URINE NON-AUTO W/O MICRO Routine 10/18/2024 11:46 AM EST Flank pain NV PUNCTURE ASPIRATION ABSCESS/HEMATOMA/BULLA/ CYST Routine 08/24/2024 6:02 PM EST Abscess HM DEPRESSION SCREENING Routine 02/01/2024 HEPATITIS C SCREENING Routine 07/15/2022 HIV SCREENING Routine 07/15/2022 LIPID PANEL Routine 07/15/2022 from Last 3 Months or Most Recently Relevant to Health Maintenance Results * Chlamydia trachomatis and Neisseria gonorrhoeae molecular study (10/19/2024 9:17 AM EST) Only the most recent of2 resultswithin the time period is included. Neisseria gonorrhoeae PCR Negative Negative LAB MOLECULAR DIAGNOSTICS METHOD 10/19/2024 1:13 PM EST [facility] Chlamydia trachomatis PCR Negative Negative LAB MOLECULAR DIAGNOSTICS METHOD 10/19/2024 1:13 PM EST [facility] Swab Urine specimen from urethra / Unknown Non-blood Collection / Unknown 10/19/2024 9:17 AM EST 10/19/2024 9:17 AM EST us Maggi Marques MD LAB MICROBIOLOGY - GENERAL ORDER HEIDI Final Result [facility] [address] [place] [address], [place] [phone] * US Retroperitoneal Complete (10/18/2024 5:54 PM EST) Anatomical Region Laterality Modality Body Ultrasound 10/19/2024 10:0 3 AM EST Impressions 10/19/2024 10:05 AM EST Small post void residual. Otherwise, unremarkable exam. -------- FINAL REPORT -------- Dictated By: Aiyana Maradiaga Dictated Date: 10/19/2024 10:03 ET Assigned Physician: Aiyana Maradiaga Reviewed and Electronically Signed By: Aiyana Maradiaga Signed Date: 10/19/2024 10:05 ET Workstation ID: [id number] Transcribed By: Self Edit Transcribed Date: 10/19/2024 [...] Signed Date: 10/19/2024 10:05 ET Workstation ID: [id number] Transcribed By: Self Edit Transcribed Date: 10/19/2024 10:03 ET Maggi Marques MD IMG US PROCEDURES Final Result * Culture urine (10/18/2024 12:26 PM EST) Pathologist [facility] Culture, Urine No growth 10/19/2024 10:36 AM EST [facility] Urine Urine specimen obtained by clean catch procedure / Unknown Non-blood Collection / Unknown 10/18/2024 12:26 PM EST 10/18/2024 12:26 PM EST Maggi Marques MD LAB MICROBIOLOGY - GENERAL ORDER HEIDI Final Result [facility] [address] [place] [address], [place] [phone] * (ABNORMAL) CBC auto differential (10/18/2024 12:25 PM EST) Pathologist [facility] WBC 7.8 4.8 - 10.8 K/mcL LAB HEMETOLOGY METHOD 10/18/2024 2:11 PM [facility] RBC 6.60(H) 4.50 - 5.50 M/mcL LAB HEMETOLOGY METHOD 10/18/2024 2:11 PM [facility] Hemoglobin 12.8(L) 13.5 - 17.5 g/dL LAB HEMETOLOGY METHOD 10/18/2024 2:11 PM [facility] Hematocrit 42.0 42.0 - 54.0 % LAB HEMETOLOGY METHOD 10/18/2024 2:11 PM [facility] MCV 63.5(L) 79.0 - 98.0 FL LAB HEMETOLOGY METHOD 10/18/2024 2:11 PM [facility] MCH 19.4(L) 27.0 - 32.0 pcg LAB HEMETOLOGY METHOD 10/18/2024 2:11 PM [facility] MCHC 30.5(L) 32.0 - 37.0 g/dL LAB HEMETOLOGY METHOD 10/18/2024 2:11 PM [facility] RDW 18.2(H) 11.0 - 15.0 % LAB HEMETOLOGY METHOD 10/18/2024 2:11 PM [facility] Platelets 336 130 - 400 K/mcL LAB HEMETOLOGY METHOD 10/18/2024 2:11 PM [facility] MPV 10.6 7.0 - 11.0 FL LAB HEMETOLOGY METHOD 10/18/2024 2:11 PM [facility] NRBC 0.0 <1.0 % LAB HEMETOLOGY METHOD 10/18/2024 2:11 PM [facility] NRBC Absolute 0.00 <0.10 K/mcL LAB HEMETOLOGY METHOD 10/18/2024 2:11 PM [facility] Neutrophils Relative 42.2 % LAB HEMETOLOGY METHOD 10/18/2024 2:11 PM [facility] Lymphocytes Relative 41.0 % LAB HEMETOLOGY METHOD 10/18/2024 2:11 PM [facility] Monocytes Relative 10.3 % LAB HEMETOLOGY METHOD 10/18/2024 2:11 PM [facility] Eosinophils Relative 5.4 % LAB HEMETOLOGY METHOD 10/18/2024 2:11 PM [facility] Basophils Relative 0.8 % LAB HEMETOLOGY METHOD 10/18/2024 2:11 PM [facility] Immature Granulocytes Relative 0.3 % LAB HEMETOLOGY METHOD 10/18/2024 2:11 PM [facility] Neutrophils Absolute 3.31 1.50 - 7.00 K/mcL LAB HEMETOLOGY METHOD 10/18/2024 2:11 PM [facility] Lymphocytes Absolute 3.21 1.00 - 5.00 K/[facility] LAB HEMETOLOGY METHOD 10/18/2024 2:11 PM EST [facility] Monocytes Absolute 0.81 0.20 - 1.00 K/[facility] LAB HEMETOLOGY METHOD 10/18/2024 2:11 PM EST [facility] Eosinophils Absolute 0.42 0.00 - 0.50 K/[facility] LAB HEMETOLOGY METHOD 10/18/2024 2:11 PM EST [facility] Basophils Absolute 0.06 0.00 - 0.20 K/[facility] LAB HEMETOLOGY METHOD 10/18/2024 2:11 PM [facility] Immature Granulocytes Absolute 0.02 0.00 - 0.03 K/[facility] LAB HEMETOLOGY METHOD 10/18/2024 2:11 PM EST [facility] Blood Venous blood specimen / Unknown Venipuncture / Unknown 10/18/2024 12:25 PM EST 10/18/2024 12:25 PM EST us Maggi Marques MD LAB BLOOD ORDERABLES Final Resul t [facility] [address] [place] [address], [place] [phone] * (ABNORMAL) Comprehensive metabolic panel (10/18/2024 12:25 PM EST) Sodium 138 133 - 145 mmol/L LAB CHEMISTRY METHOD 10/18/2024 5:17 PM EST [facility] Potassium 4.3 3.5 - 5.5 mmol/L LAB CHEMISTRY METHOD 10/18/2024 5:17 PM [facility] Chloride 106 96 - 110 mmol/L LAB CHEMISTRY METHOD 10/18/2024 5:17 PM [facility] CO2 27 21 - 32 mmol/L LAB CHEMISTRY METHOD 10/18/2024 5:17 PM EST [facility] Anion Gap 5 3 - 11 LAB CHEMISTRY METHOD 10/18/2024 5:17 PM [facility] Glucose 97 70 - 100 mg/dL LAB CHEMISTRY METHOD 10/18/2024 5:17 PM [facility] BUN 15 5 - 25 mg/dL LAB CHEMISTRY METHOD 10/18/2024 5:17 PM [facility] Creatinine 0.84 0.70 - 1.30 mg/dL LAB CHEMISTRY METHOD 10/18/2024 5:17 PM [facility] eGFR 122 >=60 mL/min/1. 73m2 LAB CHEMISTRY METHOD 10/18/2024 5:17 PM [facility] Comment:Calculation based on the??Chronic Kidney Disease Epidemiology Collaboration (CKD-EPI) equation refit??without adjustment for race. BUN/Creatinine Ratio 17.9 LAB CHEMISTRY METHOD 10/18/2024 5:17 PM [facility] Calcium 9.4 8.5 - 10.5 mg/dL LAB CHEMISTRY METHOD 10/18/2024 5:17 PM [facility] AST (SGOT) 43(H) 10 - 42 unit/L LAB CHEMISTRY METHOD 10/18/2024 5:17 PM [facility] ALT (SGPT) 96(H) 10 - 60 unit/L LAB CHEMISTRY METHOD 10/18/2024 5:17 PM [facility] Alkaline Phosphatase 90 42 - 121 unit/L LAB CHEMISTRY METHOD 10/18/2024 5:17 PM [facility] Total Protein 7.7 6.0 - 8.0 g/dL LAB CHEMISTRY METHOD 10/18/2024 5:17 PM [facility] Albumin 4.3 3.2 - 5.0 g/dL LAB CHEMISTRY METHOD 10/18/2024 5:17 PM [facility] Total Bilirubin 0.4 0.0 - 1.4 mg/dL LAB CHEMISTRY METHOD 10/18/2024 5:17 PM [facility] Blood Venous blood specimen / Unknown Venipuncture / Unknown 10/18/2024 12:25 PM EST 10/18/2024 12:25 PM EST us Maggi Marques MD LAB BLOOD ORDERABLES Final Resul t [facility] [address] [place] [address], [place] [phone] * (ABNORMAL) POC Urine Non-Auto W/O Micro (10/18/2024 11:46 AM EST) Leukocytes UA POC Negative Negative Nitrite UA POC Negative Negative Urobilinogen UA POC Positive(A) Negative Protein UA POC Positive(A) Negative PH UA POC 6.5 5.0 - 9.0 Blood UA POC Positive(A) Negative, Trace Specific Conifer UA POC 1.030 1.001 - 1.035 Ketones UA POC Negative Negative Bilirubin UA POC Positive(A) Negative Glucose UA POC Normal Normal, Trace Urine Urine specimen obtained by clean catch procedure / Unknown 10/18/2024 11:46 AM EST us Maggi Marques MD POINT OF CARE TEST ENTER/EDIT OR DERABLES Final Result * NV PUNCTURE ASPIRATION ABSCESS/HEMATOMA/BULLA/CYST (08/24/2024 6:02 PM EST) Narrative Timmy Morgan PA - 08/24/2024 6:02 PM EST DIOGENES West ? 08/24/2024 ??6:07 PM Incision and Drainage Date/Time: 08/24/2024 6:02 PM Performed by: DIOGENES West Authorized by: DIOGENES West ?? Informed Consent: ??Site: ??Ear ??Laterality: ??Left ??Relevant images/test results available and reviewed: yes ?Health status cleared: ??Yes ??Procedure/treatment, purpose, treatment alternatives, risks/potential complications and benefits explained: yes ?Patient questions answered: yes ?Patient agrees, verbalizes understanding, and wants to proceed: yes ?Consent given by: ??Patient ??Informed consent discussion completed by Physician/EVELYN with patient: ?? Verbal ??Pre-procedure timeout performed: yes ?? Location: ??Indication: cyst ?Size: ??.3 ??Body area: ??Head/neck ??Head/neck location: ??L ear Procedure type: ??Complexity: ??Simple ??Type: puncture ?Type comment: ??None Pre-procedure details: ??Skin preparation: ??Alcohol ??Preparation: Patient was prepped and draped in the usual sterile fashion ??Anesthesia method: ??None Procedure details: ??Needle aspiration: no ?Incision type: Pressure manipulation. ??Drainage: ??Bloody ??Drainage amount: ??Scant ??Hemostasis achieved: Yes ?Hemostasis obtained with: ??Pressure ??Wound treatment: ??Wound left open ??Packing materials: ??None Post-procedure details: ??Estimated blood loss: ??Minimal and less than 1 mL ??Dressing: ??Antibiotic ointment and bulky dressing ??Patient tolerance of procedure: patient tolerated the procedure well with no immediate complications ?Post-procedure care was discussed and patient was instructed to call with any increased pain: Yes ?Wound care sheet and aftercare instructions provided: Yes ?Patient instructed to return: Yes ?? Comments: ?? The small amount of blood that was in the lesion was expressed with manipulation. ??Dressing with 2 by twos and antibiotic ointment. ??Explained the patient that he should leave the dressing on for the next 24 hours and then remove and may start just wearing a Band-Aid and may take showers immediately. us Timmy SHETTY IN CLINIC/BEDSIDE ORDERABLES F inal Result * Depression Screening (02/01/2024) [facility] Depression Screening abstracted Historical Provider HEALTH MAINTENANCE Final Result * HIV Screening (07/15/2022) [facility] HIV Screening abstracted Historical Provider HEALTH MAINTENANCE Final Result * Hepatitis C Screening (07/15/2022) [facility] Hepatitis C Screening abstracted Historical Provider HEALTH MAINTENANCE Final Result * (ABNORMAL) Lipid panel (07/15/2022) LDL/HDL Ratio 3 0 - 4 Triglycerides 79 0 - 150 mg/dL Cholesterol 166 0 - 200 mg/dL HDL 49 >=40 mg/dL LDL Cholesterol 102(A) 0 - 100 mg/dL Blood Venous blood specimen / Unknown Historical Provider LAB BLOOD ORDERABLES Katey l Result from Last 3 Months or Most Recently Relevant to Health Maintenance Insurance [employer] Care Teams Automated Cutting Machine Operator Relationship Specialty Start Date End Date Maggi Marques MD [address] [place] [address] PCP - General Internal Medicine 01/11/19
--- OUTSIDE RECORDS SUMMARY | 2024-11-12 09:28 | XMS_ITS | Encounter Summary ---
Author Organization [employer] Address [address] [place] [address] Care Team Providers Care Loan Representative Name Role Phone Maggi Marques MD Primary Care Provider [phone] Reason for Visit * Reason Onset Date Comments Error 10/19/2024 Encounter Details Date Type Department Care Team (Late st Contact Info) Description 10/19/2024 Telephone Adult Medicine [address] [phone] Elizabeth Degroot [place] Error Social History Tobacco Use Types Packs/Day Years [...] PM EST documented as of this encounter Plan of Treatment Upcoming Encounters Date Type Department Care Team (Late st Contact Info) Description 01/02/2025 3:00 PM EDT Office Visit Gastroenterology - [place] [address] [place] [phone] Lizzeth Queen PA [address] [place] [address] documented as of this encounter Visit Diagnoses Not on filedocumented in this encounter Care Teams Loan Representative Relationship Specialty Start Date End Date Maggi Marques MD [address] [place] [id number] PCP - General Internal Medicine 01/11/19 documented as of this encounter
--- OUTSIDE RECORDS SUMMARY | 2024-11-12 09:28 | XMS_ITS | Data Portability ---
Author Organization DIOGENES Grigsby s [facility] Address [address] [place] [address] Care Team Providers Care Prior Authorization Nurse Name Role Phone HARJIT BLACKMATT Primary Care Provider Assessment No assessment recorded. Plan of Treatment Reminders Order Date Submit Date Provider Last Modified By Organization Details Last Modified Time Details Appointments None recorded. Lab SARS CoV 2 (COVID-19) Ag, QL, IA, upper respiratory specimen 2023 024 [email or web address] [facility], [address] [place] [address], [phone], 4 18:01:37 rapid strep group A, throat 2023 024 [email or web address] _[facility], [address] [place] [address], [phone], 4 18:01:38 SARS CoV 2 RNA (COVID-19), QL, assistant surveyor-PCR, respiratory specimen 2023 024 [place] [facility], [address] [place] [address], [place], [address], 4 18:06:11 rapid SARS CoV 2 Ag, QL IA, respiratory specimen 2021 [email or web address] [facility], [address] [place] [address], [phone], 2 16:44:33 SARS CoV 2 RNA (COVID-19), QL, assistant surveyor-PCR, respiratory specimen 2021 [place] [facility] ([place]), [address], [place], [address], 06:06:57 Referral emergency medicine referral - Head injury on Tuesday, Severe headache, vision change 2023 [email or web address] 48 [facility], [address] [place], [address], 4 20:18:25 Procedures None recorded. Surgeries None recorded. Imaging None recorded. Medication Orders benzonatate 200 mg capsule 2023 [facility], [address] [place] [address], [address], 4 19:54:32 loratadine 10 mg tablet 2021 [facility], [address] [place] [address], [address], 16:44:44 benzonatate 200 mg capsule [address] [facility], [address] [place] [address], [address], 4 19:54:21 Patient TargetsNo targets recorded. Patient Instructions Encounter Date Encounter Id Patient Instructions Last Modified By Organization Details Last Modified Time 08/02/2022 [id number] cough: care instructions [email or web address] Not available 08/02/2022 16:44:33 You have been diagnosed with an Upper Respiratory Infection. Your Rapid COVID test was negative. We will send out the COVID PCR test to the lab per your request. We should get those results back in the next 72 hours. Please contact our office if you do not receive your results within 3 days. It is important to drink plenty of fluids and rest while you are ill. Hot Tea with Honey is good to help with a sore throat. Some OTC medications that are helpful with your current symptoms would include. 1. Tylenol 2. Mary Selzer Cold/Flu Effervescent Pills 3. Saline Nasal Eland Try an avoid other people and wash your hands regularly. Most symptoms will improve on its own in 7-10 days. If symptoms last longer than 10 days then I would suggest getting a re-evaluate by us or your Primary Care Doctor. I would be seen more urgently if you develop any of the following symptoms: 1. Fever > 101.0 2. Increased facial pain or pressure 3. Purulent Discharge from the nose that occurs all day -(not just first thing in the AM) 4. Worsening Sore throat 5. Cough or Shortness of Breath I would go to the ER if you develop: 1. Severe Headache 2. Fever > 102.5 3. Still Neck 4. Shortness of Breath or Chest Pain. For that discomfort over the sternum from the direct trauma: 1. I advise heat 2. Advise Ibuprofen and Tylenol. You blood pressure was elevated during your visit with us and you do not have a history of Hypertension or taking blood pressure medications currently. This is important to monitor and address with your PCP. Undiagnosed hypertension that remains untreated can lead to: 1. Kidney Failure 2. Stroke 3. Congestive Heart Failure. Please get a blood pressure cuff and keep a journal of your daily blood pressure. Once in the AM and Once in a PM. Please schedule an appointment with your Primary Care Doctor to discuss the results of your journal. Not available 08/02/2022 16:46:19 03/22/2024 [id number] headache: care instructions Not available 03/22/2024 20:13:21 reduced vision: care instructions Not available 03/22/2024 20:13:21 Reason for Referral Emergency Medicine Referral for Abnormal vision Head injury on Tuesday, Severe headache, vision change Referring Physician: Yazmin Moore, Urgent Care, Encounter Date: 03/22/2024 Results Created Date Observation Date Name Description Value Unit Range Abnormal Flag Note LastModifiedBy Organization Detail LastModifiedTime 08/02/20 22 08/03/2022 SARS- COV-2 , MOSES sars-cov-2, MOSES Detect ed not detect ed abnormal Patie nts who have a posit raymundo COVID -19 test resul t may now have treat ment optio ns. Treat ment optio ns are avail able for patie nts with mild to moder ate sympt oms and for hospi taliz ed patie nts. Visit our websi te at [email or web address] :[email or web address] 9 for resou rces and infor jessica latamirano. This nucle ic acid ampli ficat ion test was devel oped and its perfo rmanc e jessica cteri stics deter mined by [facility] at[facility] es. Nucle ic acid ampli ficat ion tests inclu de RT-PC R and TMA. This test has not been FDA clear ed or appro clau. This test has been autho rized by FDA under an Emerg ency Use Autho rizat ion (EUA) . This test is only autho rized for the durat ion of time the decla ratio n that circu mstan glo exist justi fying the autho rizat ion of the emerg ency use of in vitro diagn ostic tests for detec tion of SARS- CoV-2 virus and/o r diagn osis of COVID -19 infec tion under secti on 564(b )(1) of the Act, 21 U.S.C . 360bb b-3(b ) (1), unles s the autho rizat ion is termi nated or revok ed soone r. When diagn ostic testi ng is negat raymundo, the possi bilit y of a false negat raymundo resul t shoul d be consi dered in the claribel xt of a patie nt's recen t expos ures and the prese nce of clini virgil signs and sympt oms consi stent with COVID -19. An indiv idual witho ut sympt oms of COVID -19 and who is not amirah ing SARS- CoV-2 virus would expec t to have a negat raymundo (not detec giancarlo) resul t in this assay . Not Available [facility] ([facility]) [address] [facility], [place], [address], 08/04/2022 06:06:57 08/02/20 22 08/02/2022 rapid SARS CoV 2 Ag, QL IA, respi rator y speci men Unknown Analyte negati ve Not Available [facility] [address] [facility], [place], [id number], 08/02/2022 15:57:20 08/02/20 22 08/02/2022 rapid SARS CoV 2 Ag, QL IA, respi rator y speci men Unknown Analyte Negati ve Not Available [address] [address] [facility], [place], [address], 08/02/2022 15:57:20 10/05/19 24 10/07/2023 SARS- COV-2 , MOSES sars-cov-2, MOSES DETECT ED not detect ed abnormal Patie nts who have a posit raymundo COVID -19 test resul t may now have treat ment optio ns. Treat ment optio ns are avail able for patie nts with mild to moder ate sympt oms and for hospi taliz ed patie nts. Visit our [employer] te at https :[email or web address] 9 for resou rces and infor matio n. This nucle ic acid ampli ficat ion test was devel oped and its perfo rmanc e jessica cteri stics deter mined by [facility]. Nucle ic acid ampli ficat ion tests inclu de RT-PC R and TMA. This test has not been FDA clear ed or appro clau. This test has been autho rized by FDA under an Emerg ency Use Autho rizat ion (EUA) . This test is only autho rized for the durat ion of time the decla ratio n that circu mstan glo exist justi fying the autho rizat ion of the emerg ency use of in vitro diagn ostic tests for detec tion of SARS- CoV-2 virus and/o r diagn osis of COVID -19 infec tion under secti on 564(b )(1) of the Act, 21 U.S.C . 360bb b-3(b ) (1), unles s the autho rizat ion is termi nated or revok ed soone r. When diagn ostic testi ng is negat raymundo, the possi bilit y of a false negat raymundo resul t shoul d be consi dered in the claribel xt of a patie nt's recen t expos ures and the prese nce of clini virgil signs and sympt oms consi stent with COVID -19. An indiv idual witho ut sympt oms of COVID -19 and who is not amirah ing SARS- CoV-2 virus would expec t to have a negat raymundo (not detec giancarlo) resul t in this assay . Not Available [facility] ([facility]) [address] [facility], [place], [address], 10/07/2023 18:06:11 10/05/19 24 10/05/2023 SARS CoV 2 (COVI D-19) Ag, QL, IA, upper respi rator y speci men Unknown Analyte negati ve Not Available [address], [address], 10/05/2023 17:46:10 10/05/19 24 10/05/2023 SARS CoV 2 (COVI D-19) Ag, QL, IA, upper respi rator y speci men Unknown Analyte yes Not Available [address] [place] [address], [phone], 10/05/2023 17:46:10 10/05/19 24 10/05/2023 rapid strep group A, throa t Unknown Analyte negati ve Not Available [facility] [address] [place], [address], 10/05/2023 17:46:16 10/05/19 24 10/05/2023 rapid strep group A, throa t Unknown Analyte yes Not Available [address] [place] [address], [phone], 10/05/2023 17:46:16 Result Notes None recorded. Problems Name Problem SNOMED Code Status Onset Date Resolution Date Notes Provider Name and Address Organization Details Recorded Time Gastroesophage al reflux disease 410722126 Active 2021 MINERVA zafar, [place] - [facility] 2 15:53:20 Asthma 112523135 Active 2021 MINERVA zafar, [place] - [facility] 2 15:53:27 Injury of eye region 860367941 Active 2023 Yazmin Moore NP [address] , [place], [address], PA - [facility] 4 20:09:59 Headache 98534737 Active 2023 Yazmin Moore NP [address] , [place], [address], [place] - [facility] 4 20:10:12 Abnormal vision 8765942 Active 2023 Yazmin Moore NP [address] , [facility] [place], [address], [place] - [facility] 4 20:10:28 Problem Notes None recorded. Medical Equipment None Reported. Allergies No known drug allergies Medications Name Sig Start Date Stop Date Status Note LastModified by Organization Details LastModified Time benzonatate 200 mg capsule Take 1 capsule 3 times a day by oral route for 5 days. 03/22 completed Not Available Not Available Not Available famotidine 20 mg tablet TAKE 1 TABLET BY MOUTH TWICE DAILY active Not Available Not Available No t Available benzonatate 100 mg capsule TAKE 2 CAPSULES BY MOUTH 3 TIMES A DAY NEEDED FOR COUGH 08/02 completed Not Available Not Available Not Available omeprazole 20 mg capsule,del ayed release TAKE 1 CAPSULE BY MOUTH ONCE DAILY active Not Available Not Available No t Available ibuprofen 600 mg tablet TAKE 1 TABLET BY MOUTH THREE TIMES DAILY NEEDED FOR MODERATE PAIN SCALE 4-6 08/02 completed Not Available Not Available Not Available albuterol sulfate HFA 90 mcg/actuati on aerosol inhaler INHALE 2 PUFFS BY MOUTH EVERY 4 HOURS NEEDED FOR COUGH OR WHEEZING active Not Available Not Available No t Available fluticasone propionate 50 mcg/actuati on nasal spray,suspe nsion USE 2 SPRAY(S) IN EACH NOSTRIL ONCE DAILY 08/02 completed Not Available Not Available Not Available loratadine 10 mg tablet Take 1 tablet every day by oral route. 2021 active Not Available Not Available Not Avai lable amoxicillin 875 mg-julia howe clavulanate 125 mg tablet TAKE 1 TABLET (ORAL) 2 TIMES PER DAY FOR 10 DAYS FOR INFECTION --TAKE WITH FOOD 08/02 completed Not Available Not Available Not Available Flovent HFA 220 mcg/actuati on aerosol inhaler INHALE 1 PUFF BY MOUTH TWICE DAILY active Not Available Not Available No t Available Vitals Date Recorded Body height Body mass index (BMI) Body weight Oxygen saturation Oxygen saturation in Arterial blood by Pulse oximetry Heart rate Respiratory rate Body temperature Systolic blood pressure Diastolic blood pressure Provider Name and Address Organization Details Last Updated DateTime 2 177.8 cm 24.4 kg/m2 65652.7 g 99 % 99 % 60 /min 16 /min 98.1 [degF] 139 mm[Hg] 85 mm[Hg] MINERVA SEVILLA PA - [facility] 2 15:52:11 Date Recorded Body height Body mass index (BMI) Body weight Body temperature Respiratory rate Oxygen saturation Oxygen saturation in Arterial blood by Pulse oximetry Heart rate Systolic blood pressure Diastolic blood pressure Provider Name and Address Organization Details Last Updated DateTime 4 177.8 cm 23 kg/m2 21612.7 8 g 97.3 [degF] 18 /min 97 % 97 % 60 /min 133 mm[Hg] 68 mm[Hg] Latrice Bangura PA - [facility] 4 17:46:27 Date Recorded Body height Body mass index (BMI) Body weight Oxygen saturation Oxygen saturation in Arterial blood by Pulse oximetry Pain severity - 0-10 verbal numeric rating [Score] - Reported Heart rate Respiratory rate Body temperature Systolic blood pressure Diastolic blood pressure Provider Name and Address Organization Details Last Updated DateTime 4 177.8 cm 24.4 kg/m2 29242.7 g 98 % 98 % 8 74 /min 18 /min 98.5 [degF] 137 mm[Hg] 72 mm[Hg] DARYA JOHN PA - [facility] 4 19:53:02 Social History Question Answer Notes LastModified by Organizat ion Details LastModified Time Tobacco Smoking Status Former Smoker MINERVA SEVILLA charisma, PA - [facility] 08/02/2022 15:54:43 What Is Your Level Of Alcohol Consumption? Occasional [email or web address] Information not available 08/02/2022 Which Illicit Or Recreational Drugs Have You Used? Marijuana [email or web address] Information not available 10/05/2023 When Did You Quit Smoking? 1-5yearssincel astcigarette [email or web address] Information not available 08/02/2022 Have You Had A Flu Shot This Season? No [email or web address] Information not available 10/05/2023 What Was The Date Of Your Most Recent Tobacco Screening? 10/05/2023 [email or web address] Information not available 10/05/2023 Do You Use Any Illicit Or Recreational Drugs? Yes Information not available 10/05/2023 Have You Recently Traveled Abroad? No Information not available 08/02/2022 Do You Or Have You Ever Used Any Other Forms Of Tobacco Or Nicotine? No [email or web address] Information not available 08/02/2022 Sex: Unknown Functional Status None recorded. Mental Status None recorded. Family History Relationship Description Onset Age of this Age Resolved Age Notes LastModified by Organization Details LastModified Time Father Heart disease [email or web address] Not available 2021 15:53:40 Medical History No medical history recorded. Immunizations Vaccine Type Date Status Note Provider Nam e and Address Organization Details Recorded Time Influenza, MDCK, quadrivalent, PF 2 completed Latrice Bangura null, PA - [facility] 10/05/2023 17:42:54 Influenza, MDCK, quadrivalent, PF 1 completed Latrice Bangura null, PA - [facility] 10/05/2023 17:42:54 Influenza, MDCK, quadrivalent, PF 9 completed Latrice Bangura null, PA - [facility] 10/05/2023 17:42:55 MMR 1 completed Latrice Bangura null, PA - [facility] 10/05/2023 17:42:55 MMR 7 completed Latrice Bangura null, PA - [facility] 10/05/2023 17:42:55 COVID-19, mRNA, LNP-S, PF, 30 mcg/0.3 mL dose 1 completed Latrice Bangura null, PA - [facility] 10/05/2023 17:42:55 COVID-19, mRNA, LNP-S, PF, 30 mcg/0.3 mL dose 1 completed Latrice Bangura null, PA - [facility] 10/05/2023 17:42:55 COVID-19, mRNA, LNP-S, PF, 30 mcg/0.3 mL dose, sharifa-sucrose 2 completed Latrice Bangura null, PA - [facility] 10/05/2023 17:42:55 pneumococcal polysaccharide PPV23 9 completed Latrice Bangura null, PA - [facility] 10/05/2023 17:42:55 Tdap 8 completed Latrice Bangura null, PA - [facility] 10/05/2023 17:42:55 varicella 8 completed Latrice Willem null, PA - [facility] 10/05/2023 17:42:55 varicella 7 completed Latrice Bangura null, PA - [facility] 10/05/2023 17:42:55 DTP 7 completed Latrice Bangura null, PA - [facility] 10/05/2023 17:42:55 DTP 7 completed Latrice Bangura null, PA - [facility] 10/05/2023 17:42:55 DTP 7 completed Latrice Willem null, PA - [facility] 10/05/2023 17:42:55 DTP 8 completed Latrice Willem null, PA - [facility] 10/05/2023 17:42:55 DTP 2 completed Latrice Willem null, PA - [facility] 10/05/2023 17:42:55 OPV 7 completed Latrice Bangura null, PA - [facility] 10/05/2023 17:42:55 OPV 7 completed Latrice Bangura null, PA - [facility] 10/05/2023 17:42:55 OPV 8 completed Latrice Bangura null, PA - [facility] 10/05/2023 17:42:55 OPV 7 completed Latrice Bangura null, PA - [facility] 10/05/2023 17:42:55 OPV 2 completed Latrice Bangura null, PA - [facility] 10/05/2023 17:42:55 Influenza, split virus, trivalent, preservative 9 completed Latrice Bangura null, PA - [facility] 10/05/2023 17:42:55 Influenza, split virus, trivalent, preservative 3 completed Latrice Bangura null, PA - [facility] 10/05/2023 17:42:55 Influenza, split virus, trivalent, preservative 2 completed Latrice Bangura null, PA - [facility] 10/05/2023 17:42:55 Influenza, split virus, trivalent, preservative 8 completed Latrice Bangura null, PA - [facility] 10/05/2023 17:42:55 Influenza, split virus, trivalent, preservative 0 completed Latrice Bangura null, PA - [facility] 10/05/2023 17:42:55 Influenza, split virus, trivalent, preservative 1 completed Latrice Bangura null, PA - [facility] 10/05/2023 17:42:55 Influenza, split virus, trivalent, preservative 5 completed Latrice Bangura null, PA - [facility] 10/05/2023 17:42:55 Influenza, split virus, trivalent, preservative 7 completed Latrice Bangura null, PA - [facility] 10/05/2023 17:42:55 Influenza, split virus, trivalent, PF 4 completed Latrice Bnagura null, PA - [facility] 10/05/2023 17:42:55 Influenza, split virus, trivalent, PF 6 completed Latrice Bangura null, PA - [facility] 10/05/2023 17:42:55 Novel [id number], preservative-free 0 completed Latrice Bangura null, PA - [facility] 10/05/2023 17:42:55 HPV, quadrivalent 4 completed Latrice Bangura null, PA - [facility] 10/05/2023 17:42:55 HPV, quadrivalent 3 completed Latrice Bangura null, PA - [facility] 10/05/2023 17:42:55 HPV, quadrivalent 2 completed Latrice Bangura null, PA - [facility] 10/05/2023 17:42:55 Td (adult), 2 Lf tetanus toxoid, preservative free, adsorbed 1 completed Latrice Bangura null, PA - [facility] 10/05/2023 17:42:55 Td (adult), 2 Lf tetanus toxoid, preservative free, adsorbed 7 completed Latrice Bangura null, PA - [facility] 10/05/2023 17:42:55 Hep B, adolescent or pediatric 7 completed Latrice Bangura null, PA - [facility] 10/05/2023 17:42:55 Hep B, adolescent or pediatric 7 completed Latrice Bangura null, PA - [facility] 10/05/2023 17:42:55 Hep B, adolescent or pediatric 7 completed Latrice Bangura null, PA - [facility] 10/05/2023 17:42:55 Hep A, ped/adol, 2 dose 2 completed Latrice Bangura null, PA - [facility] 10/05/2023 17:42:55 Hep A, ped/adol, 2 dose 2 completed Latrice Bangura null, PA - [facility] 10/05/2023 17:42:55 Hib (HbOC) 7 completed Latrice Bangura null, PA - [facility] 10/05/2023 17:42:55 Hib (HbOC) 7 completed Latrice Bangura null, PA - [facility] 10/05/2023 17:42:55 Hib (HbOC) 7 completed Latrice Bangura null, PA - [facility] 10/05/2023 17:42:55 Hib (HbOC) 8 completed Latrice Bangura null, PA - [facility] 10/05/2023 17:42:55 meningococcal MCV4P 4 completed Latrice Bangura null, PA - [facility] 10/05/2023 17:42:55 meningococcal MCV4P 9 completed Latrice Bangura null, PA - [facility] 10/05/2023 17:42:55 Past Encounters Encounter ID Performer Location Encounter Start Date Encounter Closed Date Diagnosis/Indication Diagnosis SNOMED-CT Code Diagnosis ICD10 Code Diagnosis Note [id number] [facility] [address] [place] [address] 11/12/2020 16:08:41 11/12/2020 16:55:45 [id number] [facility] [address] [place] [address] 10/18/2020 15:22:01 10/18/2020 15:40:27 [id number] [address] [address] [place] [address] 09/02/2020 12:25:11 09/02/2020 14:16:20 [id number] [address] [address] [place] [address] 12/16/2020 15:12:38 12/16/2020 15:56:47 [id number] [address] [address] [place] [address] 06/17/2021 15:38:43 06/17/2021 16:01:04 [id number] [facility] [address] [place] [address] 10/12/2019 12:55:47 10/12/2019 13:12:32 [id number] [address] [address] [facility] [place] [address] 11/27/2019 14:27:38 11/27/2019 16:13:41 [id number] [address] [address] [place] [address] 01/09/2021 16:43:42 01/09/2021 18:26:55 [id number] [address] [address] [place] [address] 03/20/2020 11:03:14 03/20/2020 11:53:42 [id number] [address] [address] [place] [address] 04/14/2020 09:37:41 04/14/2020 10:34:29 [id number] [facility] [address] [place] [address] 05/27/2021 12:57:58 05/27/2021 13:57:01 [id number] [facility] [address] [facility] [place] [address] 09/15/2020 18:30:26 09/15/2020 19:28:08 [id number] [facility] [address] [facility] [place] [address] 06/17/2021 13:24:19 06/17/2021 16:01:01 [id number] [facility] [address] [facility] [place] [address] 02/24/2021 14:29:53 02/24/2021 15:17:00 [id number] DIOGENES TREADWELL [address] [address] [facility] [place] [address] 08/02/2022 15:35:31 08/02/2022 16:52:07 Exposure to SARS-CoV-2 591797687 Z20.822 Upper resp iratory infection 76853074 J06.9 Elevated blood-pressure reading without diagnosis of hypertension 216414518 R03.0 [id number] DIOGENES Flores [address] [place] [address] 10/05/2023 17:37:22 10/05/2023 18:06:21 COVID-19 [id number] U07.1 You have been Diagnosed with COVID - your Rapid COVID test was negative, but your home test was positive. I recommend the following to help with your symptoms of this viral infection: 1. Take Ibuprofen or Tylenol if you do not have any allergies to these medication s. If you take a blood thinner you should not take NSAIDS like Ibuprofen. These medication will help with the inflammati on in your respirator y tract which should help the cough.2. I suggest taking a Antihistam ine (loratadin e or cetirizine or Verena or benadryl) - to help with the congestion . I would advise this over a decongesta nt.3. Saline Nasal Spray4. Salt Water Gargles. I would be seen again immediatel y in the Emergency Room if you develop:1. Shortness of Breath2. Chest Pain3. Fever > 101.04. Lethargy or Confusion. You should notify you PCP that you have been diagnosed with this infection. Below is the current CDC guidelines . Updated CDC Guidelines for Quarantine and Testing- 09/05/2021 If You Test Positive for COVID-19 (Isolate)E veryone, regardless of vaccinatio n status. 1. Stay home for 5 days.2. If you have no symptoms or your symptoms are resolving after 5 days, you can leave your house.3. Continue to wear a mask around others for 5 additional days. If you have a fever or feel worse, continue to stay home until your fever resolves._ If You Were Exposed to Someone with COVID-19 (Quarantin e)If you:Have been boosted ORComplete d the primary series of Pfizer or Moderna vaccine within the last 6 months.ORC ompleted the primary series of J&J vaccine within the last 2 months 1. Wear a mask around others for 10 days.2. Test on day 5, if possible.3 . If you develop symptoms get a test and stay home. If you: Completed the primary series of Pfizer or Moderna vaccine over 6 months ago and are not boostedORC ompleted the primary series of J&J over 2 months ago and are not boostedORA re un-vaccina giancarlo 1. Stay home for 5 days. After that continue to wear a mask around others for 5 additional days.2. Test on day 5, if possible. If you develop symptoms get a test and stay home Quarantine Calculatio n:Day 0: is the first day of symptoms or a positive viral test.Day 1: is the first full day after your symptoms developed or when your test specimen was collected. Exposure:D ay 1: is the first full day after your last known contact with a person that tested positive for COVID 19. [facility] Thank you for visiting [facility] today, please feel free to call our office you have any questions or concerns. [id number] Yaz[place] [id number] [address] 03/22/2024 19:39:31 03/22/2024 20:18:25 Injury of eye region [id number] S05.92XA Headache [id number] R51.9 Based on your exam and presentati on - I am diagnosing you with a traumatic closed head injury with vision changes We are limited in our diagnostic capabiliti es in our center and feel that it would be best to go to the Emergency Room. Based on your presentati on it would be best to have access to lab work and advanced imaging, if the physician would feel that would be indicated based on your History and Presentati on. These things are typically necessary to give you an accurate diagnosis head injury has the risk of having significan t complicati ons if not diagnosed and treated appropriat zach. This may include . you have opted to refuse the ER transfer for traumatic head injury . an AMA form has been entered into your record. Abnormal vision [id number] H54.7 related to the traumatic injury Health Concerns Section Related Observation LastModified by Organization Detai ls LastModified Time None Recorded Concern Status LastModified by Organization Details LastModified Time None Recorded Advance Directives Directive None Recorded Payers Encounter Date Sequence Insurance Name Policy Number Policy August Covered Member ID August Member ID Guarantor Name 08/02/2022 1 [facility] [id number] Orion Rankin [id number] Orion Rankin 10/05/2023 1 [facility] [id number] Orion Rankin [id number] Orion Rankin 03/22/2024 1 [id number] Orion Rankin [id number] Orion Rankin Notes Date Note Type Note Provider Name and Address Organization Details Recorded Time 2 text/html CoughReported bypatient.Quality:intermitt ent Severity:mild Duration:5 days Timing:sudden Context:history of asthma Associated Symptoms:no fever; no chills; no chest pain; no nausea; no vomiting;heartburn;wheezing ;post nasal dripNotes:The patient states symptoms started last Tuesday. Congestion, achy, and felt like he had COVID. The patient reports has had COVID 2 other times. The patient states cough continues. 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 The patient also reports hit his sternum and now he has point tenderness over the lower part of the sterum. Hurts to touch. No skin Bruising. Denies SOB. No N/V/D but suffers from GERD. DIOGENES TREADWELL [address] [facility] [place], [address], [employer] 08/02/2022 16:59:08 4 text/html CoughReported bypatient.source of patient informationInformation obtained from patient; Patient arrived at Urgent Care ambulatory Quality:intermittent; symptoms worse with lying down Severity:moderate Duration:intermittent Timing:improving Context:Patient denies vaping; non-smoker Associated Symptoms:no fever; no chills; no chest pain; no heartburn; no nausea; no vomiting; no edema; no agitation; no wheezing;post nasal drip Has asthma, using inhaler more oftenTested positive for COVID on home test 3 days ago. DIOGENES Flores [address] [place], [address], [employer] 10/05/2023 18:10:17 text/html Headache UCReported bypatient.Location:orbital; frontal; temporal Quality:worst headache ever;throbbing Severity:severe Duration:constant Onset/Timing:abrupt onset Context:related to trauma Aggravating factors:loud noise Alleviating factors:nothing gives relief Associated Symptoms:no vomiting; no motor paralysis; no sore throat; no hearing loss;photophobia;confusion; double vision;dizziness 28 YOM presents with blurred vision in left eye and redness of the same . He reports that he tripped and hit his head the day before subsequently started having vision changes today with associated headache, foggy memory and fatigue . Yazmin Moore NP [address] [place], [address], [facility] 04/06/2024 08:43:54
--- OUTSIDE RECORDS SUMMARY | 2024-11-12 09:28 | XMS_ITS | Encounter Summary ---
Author Organization [employer] Address [address] [place] [address] Care Team Providers Care Branch Mechanic Name Role Phone Maggi Marques MD Primary Care Provider [phone] Reason for Referral * Imaging (Routine) - Pending Review Specialty Diagnoses / Procedures Referred By Contac t Referred To Contact Radiology Diagnoses Flank pain Pelvic pain Hematuria, unspecified type Procedures US Retroperitoneal Complete Maggi Marques MD [address] [place] [address] Phone: tel: fax: [facility] Referral ID Status Reason Start Date Expiration Date V isits Requested Visits Authorized [id number] Pending Review 10/18/2024 10/18/2025 1 1 * Consultation (Routine) - Authorized Specialty Diagnoses / Procedures Referred By Contac t Referred To Contact Urology Diagnoses Flank pain Pelvic pain Hematuria, unspecified type Maggi Marques MD [address] [place] [address] Phone: tel: fax: [facility] [address] [facility] [address] [place] [address] Phone: tel: fax: Referral ID Status Reason Start Date Expiration Date Visits Requested Visits Authorized [id number] Authorized Specialty Services Required 10/18/2024 10/18/2025 1 1 Reason for Visit * Reason Comments Abdominal Pain Abdominal pain-right flank pain for three days 10/08 pain Encounter Details Date Type Department Care Team (Late st Contact Info) Description 10/18/2024 11:15 AM EST Office Visit Adult [facility] [address] [place] [address] Maggi Marques MD [address] [place] [address] Flank pain (Primary Dx); Pelvic pain; Hematuria, unspecified type; Urinary hesitancy Social History Tobacco Use Types Packs/Day Years [...] PM EST documented as of this encounter Last Filed Vital Signs Vital Sign Reading Time Taken Comments Blood Pressure 106/60 10/18/2024 11:33 AM EST Pulse 68 10/18/2024 11:33 AM EST Temperature 36.1 ??C (96.9 ??F) 10/18/2024 11:[address] Respiratory Rate - - Oxygen Saturation - - Inhaled Oxygen Concentration - - Weight 83.9 kg (185 lb) 10/18/2024 11:33 AM EST Height 177.8 cm (5' 10 ) 10/18/2024 11:33 AM EST Body Mass Index 26.54 10/18/2024 11:33 AM EST documented in this encounter Progress Notes * Maggi Marques MD - 10/18/2024 11:15 AM EST This patient with past med history listed below, CHIEF COMPLAINT: Abdominal Pain (Abdominal pain-right flank pain for three days 10/08 pain ) IDENTIFIER: Orion Rankin is a 29 y.o. old male. HPI: This patient with past medical history listed below, including anxiety, presents for evaluation of multiple complaints. Patient reported 2-day history of right flank pain, Lower abdominal discomfort (but not pain), he is also reporting somewhat urinary hesitancy, a sense of incomplete voiding. Sometimes this sensation may turn into difficulty urinating that he need to strain that may have contributed to some suprapubic lower abdominal discomfort. I reviewed patient's record, there is previous history of nonspecific abdominal pain, pelvic pain , patient always possible reported ongoing GI reflux, component of irritable bowel syndrome that follows with GI. Patient is very concerned regardinglaboratory studies arranged through GI office. There is no constitutional symptoms, no obvious dysuria, hematuria. Although patient specifically asked questions and become quite anxious over the finding on the office urine dipstick. Patient lives alone, his last heterosexual encounter is quite a few months ago. There is no history of STD ROS: GENERAL: Negative for malaise, significant weight loss and fever RESPIRATORY: No cough, wheezing or shortness of breath CARDIOVASCULAR: Negative for chest pain, leg swelling and palpitations GI: See HPI ENDOCRINE: Negative for cold or heat intolerance, polyuria, polydipsia and goiter NEURO: No persistent headache, fainting, seizures, strokes, TIAs, weakness, numbness or tingling PAST MEDICAL HISTORY: Patient Active Problem List Diagnosis Date Noted Incomplete RBBB 05/05/2023 Gastroesophageal reflux disease with esophagitis 06/03/2019 Abdominal pain 03/21/2019 Anxiety 03/21/2019 SOCIAL HISTORY: Social History Tobacco Use Smoking status: Former Current packs/day: 0.50 Types: Cigarettes Smokeless tobacco: Never Substance Use Topics Alcohol use: Yes FAMILY HISTORY: Family Status Relation Name Status Mother Alive Dagmar Rankin 1961 Father Alive Josr Rankin 1963 PGM (Not Specified) Other (Not Specified) MGF (Not Specified) MGM (Not Specified) Sister Alive Kassie 1990 No partnership data on file Family History Problem Relation Name Age of Onset Heart attack Mother Diabetes Father CHF, cholesterol, atrial fib, VSD, CHF Diabetes Paternal Grandmother Other (Other: epilepsy) Other maternal aunt Other (Other: myocardial infarctation) Maternal Grandfather age 52 Cataracts Maternal Grandmother ACTIVE MEDICATIONS: Outpatient Medications Marked as Taking for the 10/18/24 encounter (Office Visit) with Maggi Marques MD Medication Sig Dispense Refill albuterol HFA (PROAIR HFA ; PROVENTIL HFA ; VENTOLIN HFA) 90 mcg/actuation inhaler Inhale 2 Puffs into the lungs every 4 hours as needed for Cough or Wheezing. esomeprazole (NexIUM) [address] capsule Take 1 capsule (20 mg total) by mouth 1 (one) time each day before breakfast. Do not open capsule. 90 each 1 famotidine (PEPCID) 20 mg tablet Take 1 Tablet by mouth at bedtime as needed for Heartburn. fluticasone propionate (FLONASE) 50 mcg/actuation nasal spray 2 Sprays by Nasal route daily. ALLERGIES: Other, Banana, Food allergy formula, and Nut - unspecified PHYSICAL EXAM: Blood pressure 106/60, pulse 68, temperature 36.1 ??C (96.9 ??F), temperature source Temporal, height 1.778 m (70 ), weight 83.9 kg (185 lb). Body mass index is 26.54 kg/m??. BMI is 18.5 to 24.9 (within the normal range) and will be followed APPEARANCE: Alert and in no acute distress HEART: Normal S1-S2 LUNG: clear to auscultation bilaterally ABDOMEN: Bowel sounds normoactive, no bruits, soft, non-tender, without organomegaly or palpable masses, and no CVA tenderness EXTREMITIES: Extremities warm and well perfused without clubbing, cyanosis, or edema NEURO: Awake, alert and oriented x 3 and reflexes symmetrical SKIN: Skin color, texture, turgor normal. No rashes or lesions. LABS: BP Readings from Last 5 Encounters: 10/18/24 106/60 09/27/24 122/68 08/24/24 125/82 08/14/24 118/80 07/11/24 114/68 Wt Readings from Last 5 Encounters: 10/18/24 83.9 kg (185 lb) 09/27/24 81.2 kg (179 lb) 08/24/24 81.2 kg (179 lb) 08/14/24 81.2 kg (179 lb) 07/11/24 79.8 kg (176 lb) I reviewed today's office urine dipstick IMPRESSION: 1. Flank pain PLAN: This patient with past medical history listed below, including anxiety, presents for evaluation of multiple complaints. Patient reported 2-day history of right flank pain, Lower abdominal discomfort (but not pain), he is also reporting somewhat urinary hesitancy, a sense of incomplete voiding. Sometimes this sensation may turn into difficulty urinating that he need to strain that may have contributed to some suprapubic lower abdominal discomfort. I reviewed patient's record, there is previous history of nonspecific abdominal pain, pelvic pain , patient always possible reported ongoing GI reflux, component of irritable bowel syndrome that follows with GI. Patient is very concerned regardinglaboratory studies arranged through GI office. There is no constitutional symptoms, no obvious dysuria, hematuria. Although patient specifically asked questions and become quite anxious over the finding on the office urine dipstick. Patient lives alone, his last heterosexual encounter is quite a few months ago. There is no history of STD 1 I do not have a specific etiology with patient's constellation of symptoms, I had extensive discussion with patient regarding my evaluation plan. I will check microscopic UA, urine culture For completeness I will check STD I will check renal/bladder ultrasound because patient symptom appears to be mostly concentrated in the flank and suprapubic region. I will get a consultation from urology Extensive discussion today. Pt's multiple questions answerred to my best ability. Warning symptoms discussed that would need immediate reevaluation, including ER visit. 2 I reviewed patient's consultation notes with GI,, best answer patient's many questions, I urged the patient to follow with GI. I noted the patient is on combination of PPI and H2 luis alberto for maximal acid control 3 I believe anxiety is likely a significant component, I try my best to explain to the patient and reassured the patient regarding my evaluation plan In the future we may consider SSRI 4 while reviewing patient's record, I noted mild anemia which is a little usual for this young patient. I elect to repeat a CBC With some clinical uncertainty, I will arrange early follow-up visit. Orders Placed This Encounter Procedures POC Urine Non-Auto W/O Micro ADDITIONAL ORDERS: None Maggi Marques MD on 10/18/2024 at 12:02 PM EST documented in this encounter Plan of Treatment Upcoming Encounters Date Type Department Care Team (Late st Contact Info) Description 01/02/2025 3:00 PM EDT Office Visit Gastroenterology - [facility] [address] [place] [address] Lizzeth Queen PA [address] [place] [address] Scheduled Referrals Name Type Priority Associated Diagnoses Order Schedule Ambulatory referral to Urology Outpatient Referral Routine Flank pain Pelvic pain Hematuria, unspecified type 1 Occurrences starting 10/18/2024 until 10/18/2025 documented as of this encounter Procedures Procedure Name Priority Date/Time Associated Diagnosis Comments US RETROPERITONEAL COMPLETE Routine 10/18/2024 5:54 PM EST Flank pain Pelvic pain Hematuria, unspecified type CHLAMYDIA TRACHOMATIS AND NEISSERIA GONORRHOEAE PCR Routine 10/18/2024 12:26 PM EST Pelvic pain Urinary hesitancy CULTURE URINE Routine 10/18/2024 12:26 PM EST Pelvic pain Urinary hesitancy POC URINE NON-AUTO W/O MICRO Routine 10/18/2024 11:46 AM EST Flank pain documented in this encounter Results * US [...] Signed Date: 10/19/2024 10:05 ET Workstation ID: [id number] Transcribed By: Self Edit Transcribed Date: 10/19/2024 [...] estimated at 14 cc. Procedure Note Aiyana Mardaiaga MD - 10/19/2024 US RETROPERITONEAL COMPLETE HISTORY: [...] Signed Date: 10/19/2024 10:05 ET Workstation ID: [id number] Transcribed By: Self Edit Transcribed Date: 10/19/2024 10:03 ET Maggi Marques MD [facility] US PROCEDURES Final Result * Chlamydia trachomatis and Neisseria gonorrhoeae molecular study (10/18/2024 12:26 PM EST) Neisseria gonorrhoeae PCR Negative Negative LAB MOLECULAR DIAGNOSTICS METHOD 10/19/2024 8:49 AM EST [facility] Chlamydia trachomatis PCR Negative Negative LAB MOLECULAR DIAGNOSTICS METHOD 10/19/2024 8:49 AM EST [facility] Swab First stream urine specimen / Unknown Non-blood Collection / Unknown 10/18/2024 12:26 PM EST 10/18/2024 12:26 PM EST us Maggi Marques MD LAB MICROBIOLOGY - GENERAL ORDER HEIDI Final Result Performing Organization Address City/Special Care Hospital/ZIP Co de Phone Number [facility] [address] [place] [address], [place] [phone] * Culture urine (10/18/2024 12:26 PM EST) Pathologist [facility] Culture, Urine No growth 10/19/2024 10:36 AM [facility] Urine Urine specimen obtained by clean catch procedure / Unknown Non-blood Collection / Unknown 10/18/2024 12:26 PM EST 10/18/2024 12:26 PM EST us Maggi Marques MD LAB MICROBIOLOGY - GENERAL ORDER HEIDI Final Result Performing Organization Address [facility] Care [facility]/ZIP Co de Phone Number [facility] [address] [place] [address], [place] [phone] * (ABNORMAL) Comprehensive metabolic panel (10/18/2024 12:25 PM EST) [facility] Sodium 138 133 - 145 mmol/L LAB CHEMISTRY METHOD 10/18/2024 5:17 PM [facility] Potassium 4.3 3.5 - 5.5 mmol/L LAB CHEMISTRY METHOD 10/18/2024 5:17 PM [facility] Chloride 106 96 - 110 mmol/L LAB CHEMISTRY METHOD 10/18/2024 5:17 PM [facility] CO2 27 21 - 32 mmol/L LAB CHEMISTRY METHOD 10/18/2024 5:17 PM [facility] Anion Gap 5 3 - 11 LAB CHEMISTRY METHOD 10/18/2024 5:17 PM [facility] Glucose 97 70 - 100 mg/dL LAB CHEMISTRY METHOD 10/18/2024 5:17 PM [facility] BUN 15 5 - 25 mg/dL LAB CHEMISTRY METHOD 10/18/2024 5:17 PM [facility] Creatinine 0.84 0.70 - 1.30 mg/dL LAB CHEMISTRY METHOD 10/18/2024 5:17 PM [facility] eGFR 122 >=60 mL/min/1. 73m2 LAB CHEMISTRY METHOD 10/18/2024 5:17 PM [facility] Comment:Calculation based on the??Chronic Kidney Disease Epidemiology Collaboration (CKD-EPI) equation refit??without adjustment for race. BUN/Creatinine Ratio 17.9 LAB CHEMISTRY METHOD 10/18/2024 5:17 PM [facility] Calcium 9.4 8.5 - 10.5 mg/dL LAB CHEMISTRY METHOD 10/18/2024 5:17 PM [facility] AST (SGOT) 43(H) 10 - 42 unit/L LAB CHEMISTRY METHOD 10/18/2024 5:17 PM [facility] ALT (SGPT) 96(H) 10 - 60 unit/L LAB CHEMISTRY METHOD 10/18/2024 5:17 PM [facility] Alkaline Phosphatase 90 42 - 121 unit/L LAB CHEMISTRY METHOD 10/18/2024 5:17 PM [facility] Total Protein 7.7 6.0 - 8.0 g/dL LAB CHEMISTRY METHOD 10/18/2024 5:17 PM [facility] Albumin 4.3 3.2 - 5.0 g/dL LAB CHEMISTRY METHOD 10/18/2024 5:17 PM [facility] Total Bilirubin 0.4 0.0 - 1.4 mg/dL LAB CHEMISTRY METHOD 10/18/2024 5:17 PM [facility] Blood Venous blood specimen / Unknown Venipuncture / Unknown 10/18/2024 12:25 PM EST 10/18/2024 12:25 PM EST Maggi Marques MD LAB BLOOD ORDERABLES Final Resul t [facility] [address] [place] [address], * (ABNORMAL) POC Urine Non-Auto W/O Micro (10/18/2024 11:46 AM EST) Leukocytes UA POC Negative Negative Nitrite UA POC Negative Negative Urobilinogen UA POC Positive(A) Negative Protein UA POC Positive(A) Negative PH UA POC 6.5 5.0 - 9.0 Blood UA POC Positive(A) Negative, Trace Specific Carbon UA POC 1.030 1.001 - 1.035 Ketones UA POC Negative Negative Bilirubin UA POC Positive(A) Negative Glucose UA POC Normal Normal, Trace Urine Urine specimen obtained by clean catch procedure / Unknown 10/18/2024 11:46 AM EST Maggi Marques MD POINT OF CARE TEST ENTER/EDIT OR DERABLES Final Result documented in this encounter Visit Diagnoses Diagnosis Flank pain- Primary Abdominal pain, unspecified site Pelvic pain Hematuria, unspecified type Urinary hesitancy documented in this encounter Care Teams Branch Mechanic Relationship Specialty Start Date End Date Maggi Marques MD [address] [place] [address] PCP - General Internal Medicine 01/11/19 documented as of this encounter
--- OUTSIDE RECORDS SUMMARY | 2024-11-12 09:28 | XMS_ITS | Encounter Summary ---
Author Organization [email or web address] Address [address] [place] [address] Care Team Providers Care Senior Windows Systems Engineer Name Role Phone Maggi Marques MD Primary Care Provider [phone] Reason for Visit * Reason Comments Abdominal Pain Right side flank/rib cage painUri sx started over the weekendRight shoulder blade pain after coughing the other day Encounter Details Date Type Department Care Team (Late st Contact Info) Description 10/23/2024 3:00 PM EST Office Visit [place] [facility] [place] [address] [place] [id number] Isra Zuñiga PA [address] [place] [address] Right-sided chest wall pain (Primary Dx) Social History Tobacco Use Types Packs/Day Years [...] Mass Index 26.17 10/23/2024 3:28 PM EST documented in this encounter Progress Notes * [facility] - 10/23/2024 3:00 PM EST PATIENT'S PCP: Maggi Marques MD LAST VISIT IN THIS DEPARTMENT: 10/18/2024 LAST VISIT WITH THIS PROVIDER: 07/11/2024 Orion Rankin is a 29 y.o. (: 1995) male who presents today for: Chief Complaint Patient presents with Abdominal Pain Right side flank/rib cage pain Uri sx started over the weekend Right shoulder blade pain after coughing the other day Assessment/Plan Assessment & Plan Right-sided chest wall pain He has some reproducible right-sided chest wall pain which is most likely costochondritis. He had strong and equal lung sounds bilaterally, making pneumothorax less likely. I do not think the symptoms are related to his liver, I believe the elevated liver enzymes are related to his binge drinking. He has not been drinking, and he was advised to stay off alcohol and repeat labs in 2 to 3 weeks. I will also repeat a urine study at that time. If he continues to have persistent blood in his urine, he will refer to urology for further evaluation and management. We reviewed his overall reassuring ultrasound. I reviewed the thorough evaluation by his PCP, and I also discussed the case with his PCPprior to the visit. Patient was asked to follow-up with me in 4 to 6 weeks. Sooner if need be. He is asked to call for questions or concerns. Voiced understanding and agree with the above plan. No follow-ups on file. Subjective 29-year-old gentleman here for short-term follow-up visit. He was recently seen by PCP. Patient hassome ongoing concerns. He complains of a sore throat, cough, lost his voice, and during episode of coughing developed some right shoulder blade pain. He also has some ongoing chest congestion. He hasbeen into drinking and smoking more than he typically does. He has a lot of pain in his right ribs, which made him worried about his liver. His urine dip in the office that showed some blood as well as some urobilinogen but I think this may be due to the fact that he was dehydrated. His ultrasound did not show any renal stones. I am repeating a urine study. I also have orders placed for repeat labs., Review of Systems Constitutional: Negative for chills, diaphoresis and fever. HENT: Negative for ear pain and sore throat. Eyes: Negative for discharge. Respiratory: Negative for cough and shortness of breath. Cardiovascular: Negative for chest pain, palpitations and leg swelling. Gastrointestinal: Negative for abdominal pain. Endocrine: Negative for polyuria. Genitourinary: Negative for difficulty urinating. Musculoskeletal: Negative for gait problem. Skin: Negative for rash. Neurological: Negative for syncope and weakness. The following portions of the patient's chart were reviewed in this encounter and updated as appropriate: Tobacco Allergies Meds Problems Med Hx Surg Hx Fam Hx Objective Visit Vitals BP 112/70 Pulse 72 Temp 36.6 ??C (97.9 ??F) (Temporal) Resp 14 Ht 1.778 m (70 ) Wt 82.7 kg (182 lb 6.4 oz) SpO2 98% BMI 26.17 kg/m?? Smoking Status Former BSA 2.01 m?? SpO2: 98 % BP Readings from Last 3 Encounters: 10/23/24 112/70 10/18/24 106/60 09/27/24 122/68 Wt Readings from Last 3 Encounters: 10/23/24 82.7 kg (182 lb 6.4 oz) 10/18/24 83.9 kg (185 lb) 09/27/24 81.2 kg (179 lb) Physical Exam Constitutional: General: He is not in acute distress. Appearance: Normal appearance. He is not ill-appearing. Eyes: Conjunctiva/sclera: Conjunctivae normal. Pupils: Pupils are equal, round, and reactive to light. Cardiovascular: Rate and Rhythm: Normal rate and regular rhythm. Heart sounds: No murmur heard. Pulmonary: Effort: Pulmonary effort is normal. Breath sounds: Normal breath sounds. No wheezing, rhonchi or rales. Abdominal: General: Bowel sounds are normal. There is no distension. Palpations: Abdomen is soft. There is no mass. Hernia: No hernia is present. Musculoskeletal: General: Normal range of motion. Cervical back: Normal range of motion and neck supple. Right lower leg: No edema. Left lower leg: No edema. Skin: General: Skin is warm and dry. Capillary Refill: Capillary refill takes less than 2 seconds. Coloration: Skin is not jaundiced. Findings: No bruising, erythema or rash. Neurological: General: No focal deficit present. Mental Status: He is alert and oriented to person, place, and time. Mental status is at baseline. Psychiatric: Mood and Affect: Mood normal. Behavior: Behavior normal. Thought Content: Thought content normal. Judgment: Judgment normal. Allergies Allergen Reactions Other Runny nose Seasonal allergies Banana Food Allergy Formula Itching Itching tongue with bananas Nut - Unspecified Current Outpatient Medications Medication Instructions albuterol HFA (PROAIR HFA ; PROVENTIL HFA ; VENTOLIN HFA) 90 mcg/actuation inhaler Inhale 2 Puffs into the lungs every 4 hours as needed for Cough or Wheezing. ascorbic acid (VITAMIN C) 500 mg, Daily esomeprazole (NEXIUM) 20 mg, oral, Every morning before breakfast, Do not open capsule. famotidine (PEPCID) 20 mg tablet Take 1 Tablet by mouth at bedtime as needed for Heartburn. fluticasone propionate (FLONASE) 50 mcg/actuation nasal spray 2 Sprays by Nasal route daily. multivitamin with minerals tablet 1 tablet, Daily IMAGING/LABORATORY: None [facility] [address] [id number] documented in this encounter Plan of Treatment Upcoming Encounters Date Type Department Care Team (Late st Contact Info) Description 01/02/2025 3:00 PM EDT Office Visit Gastroenterology - [place] [address] [place] [address] Lizzeth Queen PA [address] [facility] [address] [place] [address] documented as of this encounter Visit Diagnoses Diagnosis Right-sided chest wall pain- Primary Painful respiration documented in this encounter Discontinued Medications Medication Sig Discontinue Reason Start Date End Da te albuterol 2.5 mg /3 mL (0.083 %) nebulizer solution Take 1 Vial by nebulization every 4 hours as needed for Wheezing or Cough. 05/12/2021 10/23/2024 documented as of this encounter Historical Medications * This list may reflect changes made after this encounter. ascorbic acid (VITAMIN C) 500 mg CR capsule Take 1 capsule (500 mg total) by mouth 1 (one) time each day. multivitamin with minerals tablet Take 1 tablet by mouth 1 (one) time each day. added in this encounter Care Teams Senior Windows Systems Engineer Relationship Specialty Start Date End Date Maggi Marques MD [address] [place] [address] PCP - General Internal Medicine 01/11/19 documented as of this encounter
== END 2024-11-12 08:30 | disposition home or self-care (01) ==
LOC: HO.HMGCX 08:29
PROVIDERS: PCP Internal Medicine; Visit Provider Nurse Practitioner Family
DX: S99.911A Unspecified injury of right ankle, initial encounter (principal)
CPT/HCPCS: 73610

== ENCOUNTER 2024-11-12 08:29 | Outpatient (AMB) | payer OTHER, SELFPAY ==
[2024-11-12 08:31] VITALS: BP 118/78; PULSE 78; TEMP 36.7; O2SAT 98
--- NOTE | 2024-11-12 08:31 | MHC.OFFWIV ---
Intake Vital Signs 11/12/24 08:31 Height 5 ft 10 in BP 118/78 Blood Pressure Location Lt brachial Position Sitting Pulse 78 Pulse Source Pulse Oximeter Temp 98.0 F Temp Source Oral Pulse Oximetry (%) 98 Intake Visit Reasons: EP injury on RT foot back ankle Intake Note: pt is here for injury to right foot/ankle and back, happened last tuesday Patient Tobacco Use Status: Former Tobacco user Allergies acetaminophen [From TYLENOL] Allergy (Severe, Verified 11/12/24 08:41) ANAPHYLAXIS banana [BANANA] Allergy (Intermediate, Verified 11/12/24 08:41) ITCHING tree nuts Allergy (Intermediate, Uncoded 08/13/24 15:09) unknown FRUIT Allergy (Mild, Uncoded 08/13/24 15:09) ITCHING VEGETABLES,FRESH Allergy (Mild, Uncoded 08/13/24 15:09) ITCHING Do you need a note to return to daycare/school/sports/work: Yes HPI HPI Comments History of Present Illness Details 29 y/o male patient who presents to the walk in clinic with c/o Right Foot/Ankle pain since . Reports that a Large Speaker fell and landed on his right Back Ankle/foot. 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 He has been Icing and applying Heat with some relief. Reports the pain today is around 3/10 on pain scale - he took Ibuprofen this morning. [facility] Medical History (Updated 11/12/24 @ 09:24 by Soraya Napoles NP) Right ankle injury Upper respiratory infection due to [place] influenza virus Social History Patient Tobacco Use Status: Former Tobacco user Review of Systems Const All systems reviewed & are unremarkable except as noted in HPI and below Physical Exam Vital Signs: Last Vital Signs Temp 98.0 F 11/12/24 08:31 Pulse 78 11/12/24 08:31 BP 118/78 11/12/24 08:31 Pulse Ox 98 11/12/24 08:31 Const General: cooperative and no acute distress Nutritional Appearance: well nourished Orientation/consciousness: patient oriented x3 Neuro General: patient oriented x3 Extrem Right lower extremity: ankle Details: abnormal to inspection (Medium Size Contusion Calcaneus, erythema. TTP) Details: erythematous, tenderness Location: posteriorly and swelling Details: posteriorly; no crepitus and foot Details: toes with normal ROM and abrasion Left lower extremity: normal to inspection Ankle/foot/toe images: 1. Medium Size Contusion Calcaneus, erythema. TTP Assessment & Plan Assessment & Plan (1) Right ankle injury: Code(s): S99.911A - Unspecified injury of right ankle, initial encounter Qualifiers: Encounter type: initial encounter Qualified Code(s): S99.911A - Unspecified injury of right ankle, initial encounter Plan: DDx's: Achilles Tendonitis vs Muscle Strain/Sprain vs Fracture etc Ordered Xray Ankle NSAIDs or Acetaminophen for pain relief Wrapped Ankle with Heri Bandage. Rest and Ice/Hot. Orders: Orders XR ankle RT min 3V Today S99.911A - Unspecified injury of right ankle, initial encounter Coding Level of Care Code Est Pt Level 4 (38992) Diagnoses Injury of right ankle, initial encounter S99.911A Encounter type: initial encounter Time Spent (min) 20
--- OUTSIDE RECORDS SUMMARY | 2024-11-12 08:46 | XMS_ITS | Data Portability ---
Author Organization [place] - [facility], Allergy Address [address] [address] Assessment Encounter Date Assessment Date Assessment LastModified [...] Organization Details Recorded Time Chronic pharyngit is 688568 Active 2023 Chronic pharyngiti s; Note: Date Diagnosed: 01/06/2024 5:12 PM (J31.2) Not Available [facility] 4 03:07:09 Allergic rhinitis 57324012 Active 2023 Other allergic rhinitis; Note: Date Diagnosed: 10/29/2015 4:49 PM (J30.89) Not Available [facility] 4 03:07:11 Hypertrop hy of nasal turbinate s 07544879 Active 2023 Hypertroph y of nasal turbinates ; Note: Date Diagnosed: 10/24/2015 8:40 AM (J34.3) Not Available [facility] 4 03:07:11 Deviated nasal septum 766288975 Active 2023 Deviated nasal septum; Note: Date Diagnosed: 10/24/2015 8:40 AM (J34.2) Not Available [facility] 4 03:07:11 Polyp of nasal cavity 516214557 Active 2023 Polyp of nasal cavity; Note: Date Diagnosed: 10/29/2015 4:49 PM (J33.0) Not Available [facility] 4 03:07:11 Problem Notes None recorded. [...] 20 mg tablet active Medicati on ID: [id number] B rand Name: grover cruz Send Method: [...] capsule,d elayed release active Medicati on ID: [id number] B rand Name: omeprazo le Send Method: E-Prescr ibed Sub s Allowed: subs OK Medic ationGen ericName : omeprazo le Not Available Not Available Not Available azelastin e 137 mcg (0.1 %) nasal spray Inhale 2 spray twice a day as directed 2023 active Medicati on ID: [id number] D uration Value: 30 Brand Name: azelasti ne Send Method: E-Prescr ibed Sub s Allowed: subs OK Medic ationGen ericName : azelasti ne Not Available Not Available Not Available albuterol sulfate HFA 90 mcg/actua tion aerosol inhaler 04/18 completed Medicati on ID: [id number] B rand Name: albutero l sulfate Send [...] a day 2023 active Medicati on ID: [id number] D uration Value: 30 Brand Name: fluticas [...] Updated DateTime 04/18/2024 177.8 cm 24.4 kg/m2 86305.7 g Luke [facility] 04/18/2024 15:03:19 Social History None recorded. Functional Status None recorded. Mental Status None recorded. Family History Nothing Reported. Medical History Condition Response Anemia Y Migraines Y Anxiety Y Asthma Y Past Encounters Encounter ID Performer Location Encounter Start Date Encounter Closed Date Diagnosis/Indication Diagnosis SNOMED-CT Code Diagnosis ICD10 Code Diagnosis Note [id number] KWADWO RAMIREZ MD [facility] [address] [address] 04/18/2024 14:22:56 04/18/2024 16:45:07 Allergic rhinitis 90530265 J30.9 Patient had difficulty cooperatin g with the PFTs. His lungs are clear and no wheezing. He had a low FVC but this was most likely due to poor effort. Proceed with skin testing Deviated nasal septum 12 9227173 J34.2 [id number] DEONDRE GOMEZ RN Allergy [address] [place] [id number] 04/18/2024 16:48:57 04/18/2024 16:50:45 Allergic rhinitis 04757011 J30.9 Health Concerns Section Related Observation LastModified by Organization Detai ls LastModified Time None Recorded Concern Status LastModified by Organization Details LastModified Time None Recorded Advance Directives Directive None Recorded Payers Encounter Date Sequence Insurance Name Policy Number Policy August Covered Member ID August Member ID Guarantor Name 04/18/2024 1 [employer] [facility] [employer] [id number] Orion Rankin [id number] Orion Rankin 04/18/2024 1 [employer] [facility] [employer] [id number] Orion Rankin [id number] Orion Rankin Notes Date Note Type Note [...] or allergy testing. KWADWO DE LEON MD [address] [place] [address], [place], [address], [facility] - [facility] 04/18/2024 15:39:12
== END 2024-11-12 09:30 | disposition home or self-care (01) ==
PROVIDERS: PCP Internal Medicine; Visit Provider Nurse Practitioner Family
DX: S99.911A Unspecified injury of right ankle, initial encounter (principal)

== ENCOUNTER → 2024-11-12 09:02 | Outpatient (BNV) | payer OTHER, SELFPAY | PROVIDERS: PCP Internal Medicine; Visit Provider Radiology Diagnostic Radiology | DX: S99.911A Unspecified injury of right ankle, initial encounter (principal) | CPT/HCPCS: 73610 ==